=== PATIENT | female | born 1950 | race Caucasian/White ===

== ENCOUNTER 2017-06-15 01:01 | Emergency (ER) | payer OTHER ==
[2017-06-15 01:45] LABS: URINE PH (Dip) POC 5.5 (5.0-8.5)
[2017-06-15 01:45] LABS: URINE BLOOD (Dip) POC Negative (NEGATIVE); URINE KETONES (Dip) POC Negative (NEGATIVE); URINE LEUKOCYTE EST (Dip) POC Negative (NEGATIVE); URINE NITRITE (Dip) POC Negative (NEGATIVE); URINE TOTAL PROTEIN POC Negative (NEGATIVE)
[2017-06-15 02:27] LABS: ADD MAN DIFF? NO
[2017-06-15 02:33] LABS: WHITE BLOOD COUNT 8.7 10^3/ul (4.8-10.8)
[2017-06-15 02:33] LABS: BASOPHIL # 0.1 10^3/ul (0.0-0.1); BASOPHILS % 0.7 % (0.0-2.0); EOSINOPHILS # 0.2 10^3/ul (0.0-0.5); EOSINOPHILS % 2.6 % (0.0-7.0); HEMATOCRIT 42.9 % (37.0-47.0); HEMOGLOBIN 14.5 g/dl (12.0-16.0); LYMPHOCYTES # 3.2 10^3/ul (0.8-2.9); LYMPHOCYTES % 36.8 % (15.0-51.0); MEAN CORPUSCULAR HEMOGLOBIN 28.7 pg (29.0-33.0); MEAN CORPUSCULAR HGB CONC 33.8 g/dl (32.0-37.0); MEAN CORPUSCULAR VOLUME 84.8 fl (82.0-101.0); MEAN PLATELET VOLUME 9.6 fl (7.4-10.4); MONOCYTE # 0.7 10^3/ul (0.3-0.9); MONOCYTES % 7.9 % (0.0-11.0); NEUTROPHIL # 4.5 10^3/ul (1.6-7.5); NEUTROPHILS % 51.8 % (39.0-77.0); PLATELET COUNT 290 10^3/UL (140-415); RED BLOOD COUNT 5.06 10^6/ul (4.20-5.40); RED CELL DISTRIBUTION WIDTH 12.2 % (11.5-14.5)
[2017-06-15 02:52] LABS: ALANINE AMINOTRANSFERASE 55 IU/L (13-69); ALBUMIN 4.2 g/dl (3.3-4.9); ALBUMIN/GLOBULIN RATIO 1.31; ALKALINE PHOSPHATASE 252 IU/L (42-121); ANION GAP 19 (8-16); ASPARTATE AMINO TRANSFERASE 26 IU/L (15-46); BILIRUBIN,INDIRECT 0.2 mg/dl (0-1.1); BILIRUBIN,TOTAL 0.2 mg/dl (0.2-1.3); BLOOD UREA NITROGEN 30 mg/dl (7-20); CALCIUM 10.5 mg/dl (8.4-10.2); CARBON DIOXIDE 26 mmol/L (21-31); CHLORIDE 97 mmol/L (97-110); CREATININE 1.02 mg/dl (0.44-1.00); LIPASE 66 U/L (23-300); POTASSIUM 4.3 mmol/L (3.5-5.1); SODIUM 138 mmol/L (135-144); TOTAL PROTEIN 7.4 g/dl (6.1-8.1)
[2017-06-15 02:57] LABS: GLUCOSE 478 mg/dl (70-220)
[2017-06-15] MEDS: INSULIN LISPRO 100 UNIT/ML VIAL SC (05:09)
[2017-06-15] MEDS: SOD CHLORIDE 0.9% 1,000 ML IV (05:10)
[2017-06-15] MEDS: HYDROCODONE/APAP (10/325) TAB PO (05:24)
== END 2017-06-15 06:26 | disposition home or self-care (01) ==
LOC: E/R 01:01
DX: E11.65 Type 2 diabetes mellitus with hyperglycemia (principal); E86.0 Dehydration; I10 Essential (primary) hypertension; I25.10 Atherosclerotic heart disease of native coronary artery without angina pectoris; Z79.4 Long term (current) use of insulin
CPT/HCPCS: 36415; 71045; 80053; 81003; 82962; 83690; 85025; 93005; 96372; 99285-25

== ENCOUNTER 2017-09-15 05:11 | Observation (INO) | payer OTHER ==
[2017-09-15 05:48] LABS: URINE BLOOD (Dip) POC 1+ (NEGATIVE); URINE KETONES (Dip) POC Negative (NEGATIVE); URINE LEUKOCYTE EST (Dip) POC 1+ (NEGATIVE); URINE NITRITE (Dip) POC Negative (NEGATIVE); URINE TOTAL PROTEIN POC 1+ (NEGATIVE)
[2017-09-15] MEDS: ONDANSETRON 4 MG INJ IV ×2 (06:33→10:34)
[2017-09-15] MEDS: SOD CHLORIDE 0.9% 1,000 ML IV ×3 (06:33→21:48)
[2017-09-15] MEDS: CEFTRIAXONE 1 GM/50 ML (PMX) 50 ML IVPB (06:34)
[2017-09-15] MEDS: HYDROmorphONE 1 MG/ML SYG IV ×2 (06:34→10:34)
[2017-09-15 06:35] LABS: ADD MAN DIFF? NO
[2017-09-15 06:44] LABS: BASOPHILS % 0.4 % (0.0-2.0); EOSINOPHILS # 0.2 10^3/ul (0.0-0.5); EOSINOPHILS % 2.8 % (0.0-7.0); HEMATOCRIT 40.8 % (37.0-47.0); LYMPHOCYTES % 35.9 % (15.0-51.0); MEAN CORPUSCULAR HGB CONC 34.3 g/dl (32.0-37.0); MEAN CORPUSCULAR VOLUME 84.6 fl (82.0-101.0); MEAN PLATELET VOLUME 9.6 fl (7.4-10.4); MONOCYTE # 0.8 10^3/ul (0.3-0.9); MONOCYTES % 9.7 % (0.0-11.0); NEUTROPHIL # 4.3 10^3/ul (1.6-7.5); NEUTROPHILS % 51.1 % (39.0-77.0); PLATELET COUNT 281 10^3/UL (140-415); RED BLOOD COUNT 4.82 10^6/ul (4.20-5.40); RED CELL DISTRIBUTION WIDTH 12.1 % (11.5-14.5)
[2017-09-15 06:44] LABS: WHITE BLOOD COUNT 8.3 10^3/ul (4.8-10.8)
[2017-09-15 07:05] LABS: INR 0.97
[2017-09-15 07:06] LABS: LACTIC ACID 1.6 mmol/L (0.5-2.0)
[2017-09-15 07:06] LABS: PARTIAL THROMBOPLASTIN TIME 29.5 Sec (25.0-35.0)
[2017-09-15 07:11] LABS: ALANINE AMINOTRANSFERASE 24 IU/L (13-69); ALBUMIN 3.7 g/dl (3.3-4.9); ALBUMIN/GLOBULIN RATIO 1.05; ALKALINE PHOSPHATASE 100 IU/L (42-121); AMYLASE 41 U/L (11-123); ANION GAP 12 (8-16); ASPARTATE AMINO TRANSFERASE 17 IU/L (15-46); BLOOD UREA NITROGEN 14 mg/dl (7-20); CALCIUM 9.2 mg/dl (8.4-10.2); CARBON DIOXIDE 27 mmol/L (21-31); CHLORIDE 103 mmol/L (97-110); GLUCOSE 196 mg/dl (70-220); LIPASE 19 U/L (23-300); POTASSIUM 3.3 mmol/L (3.5-5.1); SODIUM 139 mmol/L (135-144); TOTAL PROTEIN 7.2 g/dl (6.1-8.1)
[2017-09-15 07:20] LABS: B-TYPE NATRIURETIC PEPTIDE 372 PG/ML (0-125); TROPONIN-I < 0.012 ng/ml (0.000-0.120)
[2017-09-15 08:09] LABS: ADD UMIC YES; UR ASCORBIC ACID NEGATIVE (NEGATIVE); UR BILIRUBIN (Dip) NEGATIVE (NEGATIVE); UR BLOOD (Dip) 1+ mg/dL (NEGATIVE); UR CLARITY CLEAR (CLEAR); UR COLOR YELLOW (YELLOW); UR GLUCOSE (Dip) 3+ mg/dL (NEGATIVE); UR KETONES (Dip) NEGATIVE (NEGATIVE); UR LEUKOCYTE ESTERASE (Dip) 2+ Leu/ul (NEGATIVE); UR NITRITE (Dip) NEGATIVE (NEGATIVE); UR NONSQUAMOUS EPITHELIAL CELL 1 /HPF (NONE SEEN); UR RBC 3 /HPF (0-5); UR SPECIFIC GRAVITY (Dip) 1.012 (1.003-1.030); UR SQUAMOUS EPITHELIAL CELL FEW /HPF (FEW); UR TOTAL PROTEIN (Dip) NEGATIVE (NEGATIVE); UR UROBILINOGEN (Dip) NEGATIVE (NEGATIVE); UR WBC 15 /HPF (0-5)
[2017-09-15] MEDS ORDERED: HYDROCODONE/APAP (5/325) TAB PO (10:30)
[2017-09-15] MEDS ORDERED: ONDANSETRON 4 MG INJ IV ×2 (11:30→12:00)
[2017-09-15] MEDS ORDERED: ACETAMINOPHEN 325 MG TAB PO (11:30)
[2017-09-15] MEDS ORDERED: BISACODYL 10 MG SUPP PR (12:00)
[2017-09-15] MEDS ORDERED: MAGNESIUM HYDROXIDE 30ML CUP PO (12:00)
[2017-09-15] MEDS ORDERED: DOCUSATE SODIUM 100 MG CAP PO (12:00)
[2017-09-15] MEDS: INSULIN ASPART [NOVOLOG] 3 ML PEN SC ×6 (12:00→20:40)
[2017-09-15] MEDS ORDERED: NACL 0.9% 3 ML SYG IV (12:00)
[2017-09-15] MEDS ORDERED: ZOLPIDEM 5 MG TAB PO (12:30)
[2017-09-15] MEDS ORDERED: GLUCOSE GEL 15 GRAM TUBE PO ×2 (12:30)
[2017-09-15] MEDS ORDERED: GLUCOSE GEL 15 GRAM TUBE BUCCAL (12:30)
[2017-09-15] MEDS ORDERED: GLUCAGON 1 MG INJ IM (12:30)
[2017-09-15] MEDS ORDERED: DEXTROSE 50% 50 ML SYRINGE IV ×2 (12:30)
[2017-09-15 12:36] LABS: MAGNESIUM 1.2 mg/dl (1.7-2.5)
[2017-09-15] MEDS: POTASSIUM CHLORIDE (SR) 20 MEQ TAB PO (12:50)
[2017-09-15] MEDS: MECLIZINE 25 MG TAB PO ×2 (12:50→20:42)
[2017-09-15 13:19] LABS: ERYTHROCYTE SEDIMENTATION RATE 16 mm/Hr (0-30)
[2017-09-15] MEDS: HYDROCODONE/APAP (5/325) TAB PO ×2 (14:39→20:40)
[2017-09-15] MEDS: MAGNESIUM SULFATE 4 GM/100 ML 100 ML IVPB (15:28)
[2017-09-15] MEDS: traMADol 50 MG TAB PO ×3 (17:23→17:43)
[2017-09-15] MEDS: ATORVASTATIN 80 MG TAB PO (20:43)
[2017-09-15] MEDS: INSULIN GLARGINE [LANtus] 3 ML PEN SC (20:47)
[2017-09-15] MEDS: PAROXETINE 20 MG TAB PO (20:49)
[2017-09-15] MEDS: ACETAMINOPHEN 325 MG TAB PO (22:23)
[2017-09-16] MEDS: traMADol 50 MG TAB PO (00:59)
[2017-09-16] MEDS: ACCU-CHEK XX (02:00)
[2017-09-16] MEDS: HYDROCODONE/APAP (5/325) TAB PO ×3 (02:43→14:15)
[2017-09-16 05:24] LABS: ADD MAN DIFF? NO
[2017-09-16 05:31] LABS: BASOPHILS % 0.5 % (0.0-2.0); EOSINOPHILS # 0.2 10^3/ul (0.0-0.5); EOSINOPHILS % 3.5 % (0.0-7.0); HEMATOCRIT 42.3 % (37.0-47.0); HEMOGLOBIN 13.9 g/dl (12.0-16.0); LYMPHOCYTES # 2.5 10^3/ul (0.8-2.9); LYMPHOCYTES % 41.4 % (15.0-51.0); MEAN CORPUSCULAR HEMOGLOBIN 28.8 pg (29.0-33.0); MEAN CORPUSCULAR HGB CONC 32.9 g/dl (32.0-37.0); MEAN CORPUSCULAR VOLUME 87.6 fl (82.0-101.0); MEAN PLATELET VOLUME 9.7 fl (7.4-10.4); MONOCYTE # 0.5 10^3/ul (0.3-0.9); MONOCYTES % 8.8 % (0.0-11.0); NEUTROPHIL # 2.7 10^3/ul (1.6-7.5); NEUTROPHILS % 45.6 % (39.0-77.0); PLATELET COUNT 250 10^3/UL (140-415); RED BLOOD COUNT 4.83 10^6/ul (4.20-5.40); RED CELL DISTRIBUTION WIDTH 12.3 % (11.5-14.5)
[2017-09-16] MEDS: SOD CHLORIDE 0.9% 1,000 ML IV (05:45)
[2017-09-16] MEDS: CEFTRIAXONE 1 GM/50 ML (PMX) 50 ML IVPB (05:45)
[2017-09-16 05:51] LABS: HEMOGLOBIN A1C 11.9 % (0-5.9)
[2017-09-16 05:51] LABS: ALANINE AMINOTRANSFERASE 22 IU/L (13-69); ALBUMIN 3.4 g/dl (3.3-4.9); ALBUMIN/GLOBULIN RATIO 1.13; ALKALINE PHOSPHATASE 86 IU/L (42-121); ANION GAP 15 (8-16); ASPARTATE AMINO TRANSFERASE 24 IU/L (15-46); BILIRUBIN,INDIRECT 0.5 mg/dl (0-1.1); BILIRUBIN,TOTAL 0.5 mg/dl (0.2-1.3); BLOOD UREA NITROGEN 11 mg/dl (7-20); CALCIUM 9.2 mg/dl (8.4-10.2); CARBON DIOXIDE 24 mmol/L (21-31); CHLORIDE 106 mmol/L (97-110); CREATININE 0.64 mg/dl (0.44-1.00); GLUCOSE 190 mg/dl (70-220); MAGNESIUM 1.9 mg/dl (1.7-2.5); PHOSPHORUS 2.7 mg/dl (2.5-4.9); POTASSIUM 4.2 mmol/L (3.5-5.1); SODIUM 141 mmol/L (135-144); TOTAL PROTEIN 6.4 g/dl (6.1-8.1)
[2017-09-16] MEDS: INSULIN ASPART [NOVOLOG] 3 ML PEN SC ×4 (07:50→11:53)
[2017-09-16] MEDS: LISINOPRIL 5 MG TAB PO (08:58)
[2017-09-16] MEDS: CITALOPRAM 20 MG TAB PO (08:58)
[2017-09-16] MEDS: MECLIZINE 25 MG TAB PO ×2 (08:58→14:24)
[2017-09-16] MEDS: ENOXAPARIN 40 MG/0.4 ML SYG SC (09:00)
== END 2017-09-16 16:07 | disposition home health service (06) ==
LOC: E/R 05:11 → PP2 11:17
DX: N39.0 Urinary tract infection, site not specified (principal); G89.4 Chronic pain syndrome; E11.65 Type 2 diabetes mellitus with hyperglycemia; Z79.4 Long term (current) use of insulin; I10 Essential (primary) hypertension; E78.00 Pure hypercholesterolemia, unspecified; I25.10 Atherosclerotic heart disease of native coronary artery without angina pectoris; E78.5 Hyperlipidemia, unspecified; F32.9 Major depressive disorder, single episode, unspecified; F41.9 Anxiety disorder, unspecified; E87.6 Hypokalemia; E83.42 Hypomagnesemia; M06.9 Rheumatoid arthritis, unspecified; Z88.6 Allergy status to analgesic agent; Z88.8 Allergy status to other drugs, medicaments and biological substances
CPT/HCPCS: 71045; 80053; 81001; 81003; 82150; 82962; 83036; 83605; 83690; 83735; 83880; 84100; 84484; 85025; 85610; 85651; 85730; 86850; 86900; 86901; 87040; 87086; 93005; 96374; 96375; 96376; 99285-25; G0378

== ENCOUNTER 2017-09-22 02:28 | Emergency (ER) | payer OTHER ==
[2017-09-22] MEDS: ONDANSETRON (ODT) 4 MG TAB ODT (03:34)
[2017-09-22] MEDS: HYDROCODONE/APAP (10/325) TAB PO (03:34)
[2017-09-22 03:46] LABS: URINE BLOOD (Dip) POC 1+ (NEGATIVE); URINE KETONES (Dip) POC Negative (NEGATIVE); URINE LEUKOCYTE EST (Dip) POC Trace (NEGATIVE); URINE NITRITE (Dip) POC Negative (NEGATIVE); URINE TOTAL PROTEIN POC Negative (NEGATIVE)
[2017-09-22 03:48] LABS: ADD MAN DIFF? NO
[2017-09-22 04:08] LABS: ANION GAP 15 (8-16); BLOOD UREA NITROGEN 22 mg/dl (7-20); CALCIUM 10.3 mg/dl (8.4-10.2); CARBON DIOXIDE 27 mmol/L (21-31); CHLORIDE 100 mmol/L (97-110); CREATININE 0.79 mg/dl (0.44-1.00); GLUCOSE 353 mg/dl (70-220); POTASSIUM 4.3 mmol/L (3.5-5.1); SODIUM 138 mmol/L (135-144)
[2017-09-22 04:12] LABS: WHITE BLOOD COUNT 7.8 10^3/ul (4.8-10.8)
[2017-09-22 04:12] LABS: BASOPHIL # 0.1 10^3/ul (0.0-0.1); BASOPHILS % 0.6 % (0.0-2.0); EOSINOPHILS # 0.2 10^3/ul (0.0-0.5); HEMATOCRIT 43.3 % (37.0-47.0); HEMOGLOBIN 14.7 g/dl (12.0-16.0); LYMPHOCYTES # 3.1 10^3/ul (0.8-2.9); LYMPHOCYTES % 39.5 % (15.0-51.0); MEAN CORPUSCULAR HEMOGLOBIN 29.1 pg (29.0-33.0); MEAN CORPUSCULAR HGB CONC 33.9 g/dl (32.0-37.0); MEAN CORPUSCULAR VOLUME 85.7 fl (82.0-101.0); MEAN PLATELET VOLUME 9.5 fl (7.4-10.4); MONOCYTE # 0.7 10^3/ul (0.3-0.9); MONOCYTES % 8.7 % (0.0-11.0); NEUTROPHIL # 3.8 10^3/ul (1.6-7.5); NEUTROPHILS % 48.9 % (39.0-77.0); PLATELET COUNT 308 10^3/UL (140-415); RED BLOOD COUNT 5.05 10^6/ul (4.20-5.40); RED CELL DISTRIBUTION WIDTH 12.1 % (11.5-14.5)
[2017-09-22] MEDS: INSULIN LISPRO 100 UNIT/ML VIAL SC (04:57)
== END 2017-09-22 05:17 | disposition home or self-care (01) ==
LOC: E/R 05:17
DX: G89.29 Other chronic pain (principal); E11.65 Type 2 diabetes mellitus with hyperglycemia; I10 Essential (primary) hypertension; I25.10 Atherosclerotic heart disease of native coronary artery without angina pectoris; Z79.4 Long term (current) use of insulin
CPT/HCPCS: 71045; 80048; 81003; 85025; 96372; 99284-25

== ENCOUNTER 2017-10-06 23:49 | Observation (INO) | payer OTHER ==
[2017-10-07 00:48] LABS: ADD MAN DIFF? NO
[2017-10-07 00:50] LABS: BASOPHILS % 0.4 % (0.0-2.0); EOSINOPHILS # 0.2 10^3/ul (0.0-0.5); EOSINOPHILS % 2.5 % (0.0-7.0); HEMATOCRIT 43.2 % (37.0-47.0); HEMOGLOBIN 14.5 g/dl (12.0-16.0); LYMPHOCYTES # 3.5 10^3/ul (0.8-2.9); LYMPHOCYTES % 46.3 % (15.0-51.0); MEAN CORPUSCULAR HGB CONC 33.6 g/dl (32.0-37.0); MEAN CORPUSCULAR VOLUME 86.4 fl (82.0-101.0); MEAN PLATELET VOLUME 9.4 fl (7.4-10.4); MONOCYTE # 0.7 10^3/ul (0.3-0.9); MONOCYTES % 8.7 % (0.0-11.0); NEUTROPHIL # 3.2 10^3/ul (1.6-7.5); NEUTROPHILS % 42.1 % (39.0-77.0); PLATELET COUNT 223 10^3/UL (140-415); RED CELL DISTRIBUTION WIDTH 11.9 % (11.5-14.5)
[2017-10-07 00:50] LABS: WHITE BLOOD COUNT 7.6 10^3/ul (4.8-10.8)
[2017-10-07] MEDS: SOD CHLORIDE 0.9% 500 ML IV (01:02)
[2017-10-07 01:08] LABS: ANION GAP 13 (8-16); BLOOD UREA NITROGEN 22 mg/dl (7-20); CALCIUM 9.8 mg/dl (8.4-10.2); CARBON DIOXIDE 29 mmol/L (21-31); CHLORIDE 98 mmol/L (97-110); CREATININE 0.71 mg/dl (0.44-1.00); GLUCOSE 261 mg/dl (70-220); LIPASE 46 U/L (23-300); POTASSIUM 3.8 mmol/L (3.5-5.1); SODIUM 136 mmol/L (135-144)
[2017-10-07 01:15] LABS: URINE BLOOD (Dip) POC 2+ (NEGATIVE); URINE KETONES (Dip) POC Negative (NEGATIVE); URINE LEUKOCYTE EST (Dip) POC Negative (NEGATIVE); URINE NITRITE (Dip) POC Negative (NEGATIVE); URINE TOTAL PROTEIN POC Negative (NEGATIVE)
[2017-10-07 01:28] LABS: ADD UMIC YES; UR ASCORBIC ACID NEGATIVE (NEGATIVE); UR BILIRUBIN (Dip) NEGATIVE (NEGATIVE); UR BLOOD (Dip) 2+ mg/dL (NEGATIVE); UR CLARITY CLEAR (CLEAR); UR COLOR YELLOW (YELLOW); UR GLUCOSE (Dip) 3+ mg/dL (NEGATIVE); UR KETONES (Dip) NEGATIVE (NEGATIVE); UR LEUKOCYTE ESTERASE (Dip) NEGATIVE Leu/ul (NEGATIVE); UR NITRITE (Dip) NEGATIVE (NEGATIVE); UR RBC 0 /HPF (0-5); UR SPECIFIC GRAVITY (Dip) 1.018 (1.003-1.030); UR TOTAL PROTEIN (Dip) NEGATIVE (NEGATIVE); UR UROBILINOGEN (Dip) NEGATIVE (NEGATIVE); UR WBC 1 /HPF (0-5)
[2017-10-07] MEDS ORDERED: ACETAMINOPHEN 325 MG TAB PO (03:00)
[2017-10-07] MEDS ORDERED: ONDANSETRON 4 MG INJ IV ×2 (03:00→05:30)
[2017-10-07] MEDS ORDERED: DOCUSATE SODIUM 100 MG CAP PO (05:30)
[2017-10-07] MEDS ORDERED: NACL 0.9% 3 ML SYG IV (05:30)
[2017-10-07] MEDS: ACETAMINOPHEN 325 MG TAB PO ×2 (05:52→13:03)
[2017-10-07] MEDS ORDERED: GLUCOSE GEL 15 GRAM TUBE BUCCAL (06:00)
[2017-10-07] MEDS ORDERED: GLUCAGON 1 MG INJ IM (06:00)
[2017-10-07] MEDS ORDERED: GLUCOSE GEL 15 GRAM TUBE PO ×2 (06:00)
[2017-10-07] MEDS ORDERED: DEXTROSE 50% 50 ML SYRINGE IV ×2 (06:00)
[2017-10-07] MEDS: HEPARIN 5,000 UNIT/0.5 ML VIAL SC ×3 (06:05→22:01)
[2017-10-07] MEDS: INSULIN ASPART [NOVOLOG] 3 ML PEN SC ×4 (07:57→20:46)
[2017-10-07] MEDS: LISINOPRIL 5 MG TAB PO (08:18)
[2017-10-07] MEDS: ASPIRIN 81 MG TAB PO (08:18)
[2017-10-07 13:48] LABS: AMMONIA 13 umol/l (9-30)
[2017-10-07 14:59] LABS: FOLATE 17.1 ng/ml (2.8-20.0)
[2017-10-07] MEDS: IBUPROFEN 600 MG TAB PO (16:08)
[2017-10-07] MEDS ORDERED: IBUPROFEN 600 MG TAB PO (18:00)
[2017-10-07] MEDS: ATORVASTATIN 80 MG TAB PO (20:41)
[2017-10-07] MEDS: INSULIN GLARGINE [LANTus] (100 UNITS/ML) SYG SC (20:47)
[2017-10-07] MEDS: traZODone 50 MG TAB PO (21:54)
[2017-10-07] MEDS: KETOROLAC 15 MG INJ IV (21:54)
[2017-10-08] MEDS: ACETAMINOPHEN 325 MG TAB PO ×2 (00:38→09:15)
[2017-10-08] MEDS: ACCU-CHEK XX (02:12)
[2017-10-08] MEDS: KETOROLAC 15 MG INJ IV ×2 (04:47→11:21)
[2017-10-08] MEDS: HEPARIN 5,000 UNIT/0.5 ML VIAL SC ×2 (05:41→13:12)
[2017-10-08] MEDS: INSULIN ASPART [NOVOLOG] 3 ML PEN SC ×3 (08:43→17:19)
[2017-10-08] MEDS: LISINOPRIL 5 MG TAB PO (09:11)
[2017-10-08] MEDS: ASPIRIN 81 MG TAB PO (09:11)
[2017-10-08] MEDS: HYDROCODONE/APAP (5/325) TAB PO ×2 (11:39→15:34)
[2017-10-08] MEDS ORDERED: INSULIN GLARGINE [LANTus] (100 UNITS/ML) SYG SC (20:00)
[2017-10-09] MEDS ORDERED: LISINOPRIL 10 MG TAB PO (09:00)
[2017-10-10] MEDS ORDERED: IBUPROFEN 600 MG TAB PO (22:00)
== END 2017-10-08 20:39 | disposition home health service (06) ==
LOC: E/R 23:49 → TEL 10-07 02:58
DX: G93.40 Encephalopathy, unspecified (principal); I10 Essential (primary) hypertension; E11.40 Type 2 diabetes mellitus with diabetic neuropathy, unspecified; E78.5 Hyperlipidemia, unspecified; G89.29 Other chronic pain; M06.9 Rheumatoid arthritis, unspecified; Z79.4 Long term (current) use of insulin; F11.20 Opioid dependence, uncomplicated; Z88.6 Allergy status to analgesic agent
CPT/HCPCS: 36415; 70450; 70551; 71045; 80048; 81001; 81003; 82140; 82607; 82746; 82962; 83036; 83690; 84443; 85025; 87040; 87086; 99285-25; G0378

== ENCOUNTER 2018-01-10 23:37 | Emergency (ER) | payer OTHER ==
[2018-01-11] MEDS: ACETAMINOPHEN 500 MG TAB PO (00:54)
[2018-01-11 00:59] LABS: URINE PH (Dip) POC 6.5 (5.0-8.5)
[2018-01-11 00:59] LABS: URINE BLOOD (Dip) POC Trace-lysed (NEGATIVE); URINE KETONES (Dip) POC Negative (NEGATIVE); URINE LEUKOCYTE EST (Dip) POC Negative (NEGATIVE); URINE NITRITE (Dip) POC Negative (NEGATIVE); URINE TOTAL PROTEIN POC Trace (NEGATIVE)
== END 2018-01-11 02:00 | disposition home or self-care (01) ==
LOC: FTE 23:37
DX: R51 Headache (principal); R19.7 Diarrhea, unspecified; I10 Essential (primary) hypertension; E11.9 Type 2 diabetes mellitus without complications; Z79.4 Long term (current) use of insulin
CPT/HCPCS: 81003; 99282

== ENCOUNTER 2018-03-31 07:52 | Inpatient (IN) | payer MEDICARE, OTHER ==
[2018-03-31] MEDS ORDERED: ONDANSETRON 4 MG INJ (10:09)
[2018-03-31] MEDS: HYDROmorphONE 1 MG/ML SYG IV (10:10)
[2018-03-31 11:03] LABS: ADD MAN DIFF? NO
[2018-03-31 11:05] LABS: ABNORMAL IP MESSAGE 1; BASOPHIL # 0.1 10^3/ul (0.0-0.1); BASOPHILS % 0.4 % (0.0-2.0); EOSINOPHILS # 0.1 10^3/ul (0.0-0.5); EOSINOPHILS % 1.1 % (0.0-7.0); HEMATOCRIT 44.9 % (37.0-47.0); HEMOGLOBIN 15.6 g/dl (12.0-16.0); LYMPHOCYTES # 2.5 10^3/ul (0.8-2.9); LYMPHOCYTES % 20.2 % (15.0-51.0); MEAN CORPUSCULAR HEMOGLOBIN 29.1 pg (29.0-33.0); MEAN CORPUSCULAR HGB CONC 34.7 g/dl (32.0-37.0); MEAN CORPUSCULAR VOLUME 83.6 fl (82.0-101.0); MEAN PLATELET VOLUME 9.8 fl (7.4-10.4); MONOCYTE # 1.6 10^3/ul (0.3-0.9); MONOCYTES % 13.1 % (0.0-11.0); PLATELET COUNT 277 10^3/UL (140-415); RED BLOOD COUNT 5.37 10^6/ul (4.20-5.40); RED CELL DISTRIBUTION WIDTH 11.9 % (11.5-14.5)
[2018-03-31 11:05] LABS: WHITE BLOOD COUNT 12.2 10^3/ul (4.8-10.8)
[2018-03-31 11:10] LABS: POSITIVE DIFF @See below
[2018-03-31 11:24] LABS: ALANINE AMINOTRANSFERASE 22 IU/L (13-69); ALBUMIN 4.2 g/dl (3.3-4.9); ALBUMIN/GLOBULIN RATIO 1.13; ALKALINE PHOSPHATASE 124 IU/L (42-121); ANION GAP 13 (5-13); ASPARTATE AMINO TRANSFERASE 18 IU/L (15-46); BILIRUBIN,INDIRECT 0.8 mg/dl (0-1.1); BILIRUBIN,TOTAL 0.8 mg/dl (0.2-1.3); BLOOD UREA NITROGEN 43 mg/dl (7-20); CALCIUM 10.7 mg/dl (8.4-10.2); CARBON DIOXIDE 20 mmol/L (21-31); CHLORIDE 102 mmol/L (97-110); CREATININE 0.87 mg/dl (0.44-1.00); Estimated GFR > 60 mL/min (>60); GLUCOSE 390 mg/dl (70-220); LIPASE 26 U/L (23-300); POTASSIUM 4.5 mmol/L (3.5-5.1); SODIUM 135 mmol/L (135-144); TOTAL PROTEIN 7.9 g/dl (6.1-8.1)
[2018-03-31] MEDS: ONDANSETRON 4 MG INJ IV ×2 (11:27→22:41)
[2018-03-31] MEDS: SOD CHLORIDE 0.9% 500 ML IV (11:27)
[2018-03-31 11:35] LABS: TROPONIN-I < 0.012 ng/ml (0.000-0.120)
[2018-03-31] MEDS: SOD CHLORIDE 0.9% 100 ML (12:10)
[2018-03-31] MEDS: IOHEXOL 300MG/ML 150 ML BTL (12:10)
[2018-03-31] MEDS: metroNIDAZOLE 500 MG/NS (PMX) 100 ML IVPB ×3 (12:31→21:39)
[2018-03-31] MEDS: HYDROmorphONE 2 MG/ML SYG IV (12:31)
[2018-03-31 12:37] LABS: ADD UMIC YES; UR ASCORBIC ACID NEGATIVE (NEGATIVE); UR BACTERIA FEW /HPF (NONE SEEN); UR BILIRUBIN (Dip) NEGATIVE (NEGATIVE); UR BLOOD (Dip) NEGATIVE (NEGATIVE); UR CLARITY SLIGHTLY CLOUDY (CLEAR); UR COLOR YELLOW (YELLOW); UR GLUCOSE (Dip) 3+ mg/dL (NEGATIVE); UR KETONES (Dip) TRACE mg/dL (NEGATIVE); UR LEUKOCYTE ESTERASE (Dip) TRACE Leu/ul (NEGATIVE); UR NITRITE (Dip) NEGATIVE (NEGATIVE); UR RBC 4 /HPF (0-5); UR SPECIFIC GRAVITY (Dip) 1.021 (1.003-1.030); UR SQUAMOUS EPITHELIAL CELL FEW /HPF (FEW); UR TOTAL PROTEIN (Dip) NEGATIVE (NEGATIVE); UR UROBILINOGEN (Dip) NEGATIVE (NEGATIVE); UR WBC 5 /HPF (0-5)
[2018-03-31] MEDS: LEVOFLOXACIN 750MG/D5W (PMX) 150 ML IVPB (12:52)
[2018-03-31] MEDS ORDERED: NACL 0.9% 3 ML SYG IV (13:30)
[2018-03-31] MEDS ORDERED: NA PHOSPHATE/BIPHOS 133 ML ENEMA PR (13:30)
[2018-03-31] MEDS ORDERED: BISACODYL (EC) 5 MG TAB PO (13:30)
[2018-03-31] MEDS ORDERED: MAGNESIUM HYDROXIDE 30ML CUP PO (13:30)
[2018-03-31] MEDS ORDERED: DOCUSATE SODIUM 100 MG CAP PO (13:30)
[2018-03-31] MEDS ORDERED: BISACODYL 10 MG SUPP PR ×2 (13:30→14:00)
[2018-03-31] MEDS: HYDROmorphONE 0.5 MG/0.5 ML SYG IV ×2 (14:14→20:19)
[2018-03-31] MEDS: SOD CHLORIDE 0.9% 1,000 ML IV ×2 (14:15→22:13)
[2018-03-31] MEDS: FAMOTIDINE 20 MG INJ IV ×2 (14:15→20:19)
[2018-03-31] MEDS: BISACODYL (EC) 5 MG TAB PO (14:16)
[2018-03-31] MEDS: OXYCODONE/ACETAMINOPHEN (5/325) TAB PO (17:22)
[2018-03-31] MEDS ORDERED: CIPROFLOXACIN 500 MG TAB PO (18:00)
[2018-03-31] MEDS ORDERED: DEXTROSE 50% 50 ML SYRINGE IV ×2 (21:00)
[2018-03-31] MEDS ORDERED: GLUCAGON 1 MG INJ IM (21:00)
[2018-03-31] MEDS ORDERED: GLUCOSE GEL 15 GRAM TUBE BUCCAL (21:00)
[2018-03-31] MEDS ORDERED: GLUCOSE GEL 15 GRAM TUBE PO ×2 (21:00)
[2018-03-31] MEDS: INSULIN ASPART [NOVOLOG] 3 ML PEN SC (22:05)
[2018-04-01] MEDS: HYDROmorphONE 0.5 MG/0.5 ML SYG IV ×6 (00:26→20:41)
[2018-04-01] MEDS: ACCU-CHEK XX (02:00)
[2018-04-01] MEDS: SOD CHLORIDE 0.9% 1,000 ML IV ×3 (04:37→20:53)
[2018-04-01] MEDS: metroNIDAZOLE 500 MG/NS (PMX) 100 ML IVPB ×3 (05:39→23:03)
[2018-04-01 07:15] LABS: ADD MAN DIFF? NO
[2018-04-01 07:20] LABS: BASOPHILS % 0.3 % (0.0-2.0); EOSINOPHILS # 0.1 10^3/ul (0.0-0.5); HEMOGLOBIN 13.3 g/dl (12.0-16.0); LYMPHOCYTES # 2.5 10^3/ul (0.8-2.9); LYMPHOCYTES % 24.7 % (15.0-51.0); MEAN CORPUSCULAR HEMOGLOBIN 29.4 pg (29.0-33.0); MEAN CORPUSCULAR HGB CONC 34.1 g/dl (32.0-37.0); MEAN CORPUSCULAR VOLUME 86.1 fl (82.0-101.0); MEAN PLATELET VOLUME 9.7 fl (7.4-10.4); MONOCYTE # 1.3 10^3/ul (0.3-0.9); MONOCYTES % 12.5 % (0.0-11.0); NEUTROPHIL # 6.1 10^3/ul (1.6-7.5); NEUTROPHILS % 61.2 % (39.0-77.0); PLATELET COUNT 215 10^3/UL (140-415); RED BLOOD COUNT 4.53 10^6/ul (4.20-5.40); RED CELL DISTRIBUTION WIDTH 12.1 % (11.5-14.5)
[2018-04-01 07:32] LABS: HEMOGLOBIN A1C 11.8 % (0-5.9)
[2018-04-01 07:42] LABS: ALANINE AMINOTRANSFERASE 23 IU/L (13-69); ALBUMIN 3.2 g/dl (3.3-4.9); ALKALINE PHOSPHATASE 67 IU/L (42-121); ANION GAP 9 (5-13); ASPARTATE AMINO TRANSFERASE 17 IU/L (15-46); BILIRUBIN,INDIRECT 0.5 mg/dl (0-1.1); BILIRUBIN,TOTAL 0.5 mg/dl (0.2-1.3); BLOOD UREA NITROGEN 25 mg/dl (7-20); CALCIUM 9.2 mg/dl (8.4-10.2); CARBON DIOXIDE 25 mmol/L (21-31); CHLORIDE 105 mmol/L (97-110); CHOL/HDL RATIO 3.4 RATIO; CHOLESTEROL 146 mg/dl (100-200); CREATININE 0.74 mg/dl (0.44-1.00); Estimated GFR > 60 mL/min (>60); GLUCOSE 227 mg/dl (70-220); HDL CHOLESTEROL 42 mg/dl (35-98); LDL CHOLESTEROL,CALCULATED 60 mg/dl; POTASSIUM 4.4 mmol/L (3.5-5.1); SODIUM 139 mmol/L (135-144); TOTAL PROTEIN 6.4 g/dl (6.1-8.1); TRIGLYCERIDES 218 mg/dl (0-149)
[2018-04-01] MEDS: INSULIN ASPART [NOVOLOG] 3 ML PEN SC ×4 (08:07→20:50)
[2018-04-01] MEDS: FAMOTIDINE 20 MG INJ IV ×2 (08:14→20:53)
[2018-04-01] MEDS: ONDANSETRON 4 MG INJ IV (08:14)
[2018-04-01] MEDS: ENOXAPARIN 30 MG/0.3 ML SYG SC (08:15)
[2018-04-01] MEDS: CIPROFLOXACIN 400MG/D5W 200 ML IVPB ×2 (09:29→21:54)
[2018-04-01] MEDS: KETOROLAC 30 MG INJ IV (11:07)
[2018-04-01 15:27] LABS: CARCINOEMBRYONIC ANTIGEN 2.5 ng/ml (0.0-5.0)
[2018-04-01] MEDS: INSULIN GLARGINE [LANTus] (100 UNITS/ML) SYG SC (20:49)
[2018-04-01] MEDS: ATORVASTATIN 80 MG TAB PO (20:53)
[2018-04-01] MEDS: PAROXETINE 20 MG TAB PO (20:53)
[2018-04-02] MEDS: HYDROmorphONE 0.5 MG/0.5 ML SYG IV ×6 (00:44→21:42)
[2018-04-02] MEDS: ACCU-CHEK XX (02:00)
[2018-04-02] MEDS: metroNIDAZOLE 500 MG/NS (PMX) 100 ML IVPB ×3 (05:40→22:05)
[2018-04-02 06:02] LABS: ADD MAN DIFF? NO
[2018-04-02 06:11] LABS: BASOPHILS % 0.3 % (0.0-2.0); EOSINOPHILS # 0.2 10^3/ul (0.0-0.5); EOSINOPHILS % 1.5 % (0.0-7.0); HEMATOCRIT 38.1 % (37.0-47.0); LYMPHOCYTES % 27.4 % (15.0-51.0); MEAN CORPUSCULAR HEMOGLOBIN 29.5 pg (29.0-33.0); MEAN CORPUSCULAR HGB CONC 34.1 g/dl (32.0-37.0); MEAN CORPUSCULAR VOLUME 86.4 fl (82.0-101.0); MEAN PLATELET VOLUME 9.8 fl (7.4-10.4); MONOCYTE # 1.1 10^3/ul (0.3-0.9); MONOCYTES % 9.5 % (0.0-11.0); NEUTROPHIL # 6.8 10^3/ul (1.6-7.5); NEUTROPHILS % 60.9 % (39.0-77.0); PLATELET COUNT 226 10^3/UL (140-415); RED BLOOD COUNT 4.41 10^6/ul (4.20-5.40)
[2018-04-02 06:11] LABS: WHITE BLOOD COUNT 11.1 10^3/ul (4.8-10.8)
[2018-04-02 06:22] LABS: MAGNESIUM 1.2 mg/dl (1.7-2.5)
[2018-04-02 06:37] LABS: ALANINE AMINOTRANSFERASE 24 IU/L (13-69); ALBUMIN 3.1 g/dl (3.3-4.9); ALBUMIN/GLOBULIN RATIO 1.06; ALKALINE PHOSPHATASE 78 IU/L (42-121); ANION GAP 4 (5-13); ASPARTATE AMINO TRANSFERASE 23 IU/L (15-46); BILIRUBIN,INDIRECT 0.4 mg/dl (0-1.1); BILIRUBIN,TOTAL 0.4 mg/dl (0.2-1.3); BLOOD UREA NITROGEN 19 mg/dl (7-20); CALCIUM 9.1 mg/dl (8.4-10.2); CARBON DIOXIDE 25 mmol/L (21-31); CHLORIDE 108 mmol/L (97-110); CREATININE 0.78 mg/dl (0.44-1.00); Estimated GFR > 60 mL/min (>60); GLUCOSE 214 mg/dl (70-220); POTASSIUM 4.1 mmol/L (3.5-5.1); SODIUM 137 mmol/L (135-144)
[2018-04-02] MEDS: INSULIN ASPART [NOVOLOG] 3 ML PEN SC ×5 (08:04→21:01)
[2018-04-02] MEDS: FAMOTIDINE 20 MG INJ IV (08:38)
[2018-04-02] MEDS: CITALOPRAM 20 MG TAB PO (08:38)
[2018-04-02] MEDS: LISINOPRIL 5 MG TAB PO (08:39)
[2018-04-02] MEDS: CIPROFLOXACIN 400MG/D5W 200 ML IVPB ×2 (08:39→20:57)
[2018-04-02] MEDS: ENOXAPARIN 30 MG/0.3 ML SYG SC (08:42)
[2018-04-02] MEDS: SOD CHLORIDE 0.9% 1,000 ML IV (11:10)
[2018-04-02] MEDS: MAGNESIUM SULFATE 3 GM in DEXTROSE 5% 100 ML IVPB (11:10)
[2018-04-02 11:34] LABS: OCCULT BLOOD STOOL NEGATIVE (NEGATIVE)
[2018-04-02] MEDS: HYDROCODONE/APAP (5/325) TAB PO ×2 (12:05→20:26)
[2018-04-02] MEDS: PANTOPRAZOLE 40 MG INJ IV (17:32)
[2018-04-02] MEDS: LIDOCAINE/MYLANTA 40 ML BTL PO (17:32)
[2018-04-02] MEDS: SUCRALFATE (100 MG/ML) 10ML CUP PO ×2 (17:32→20:26)
[2018-04-02] MEDS: INSULIN GLARGINE [LANTus] (100 UNITS/ML) SYG SC (20:13)
[2018-04-02] MEDS: PAROXETINE 20 MG TAB PO (20:27)
[2018-04-02] MEDS: ATORVASTATIN 80 MG TAB PO (20:27)
[2018-04-03] MEDS: SOD CHLORIDE 0.9% 1,000 ML IV ×3 (01:26→20:22)
[2018-04-03] MEDS: HYDROmorphONE 0.5 MG/0.5 ML SYG IV ×6 (01:45→22:08)
[2018-04-03] MEDS: ACCU-CHEK XX (02:00)
[2018-04-03] MEDS: ACETAMINOPHEN 325 MG TAB PO (03:34)
[2018-04-03] MEDS: PANTOPRAZOLE 40 MG INJ IV ×2 (05:30→17:41)
[2018-04-03] MEDS: metroNIDAZOLE 500 MG/NS (PMX) 100 ML IVPB ×3 (05:30→22:08)
[2018-04-03 07:18] LABS: ADD MAN DIFF? NO
[2018-04-03 07:20] LABS: WHITE BLOOD COUNT 7.6 10^3/ul (4.8-10.8)
[2018-04-03 07:20] LABS: BASOPHILS % 0.3 % (0.0-2.0); EOSINOPHILS # 0.3 10^3/ul (0.0-0.5); EOSINOPHILS % 3.4 % (0.0-7.0); HEMATOCRIT 35.8 % (37.0-47.0); LYMPHOCYTES # 2.6 10^3/ul (0.8-2.9); LYMPHOCYTES % 33.9 % (15.0-51.0); MEAN CORPUSCULAR HGB CONC 33.5 g/dl (32.0-37.0); MEAN CORPUSCULAR VOLUME 86.5 fl (82.0-101.0); MEAN PLATELET VOLUME 9.3 fl (7.4-10.4); MONOCYTE # 0.7 10^3/ul (0.3-0.9); MONOCYTES % 9.6 % (0.0-11.0); NEUTROPHILS % 52.5 % (39.0-77.0); PLATELET COUNT 218 10^3/UL (140-415); RED BLOOD COUNT 4.14 10^6/ul (4.20-5.40); RED CELL DISTRIBUTION WIDTH 11.9 % (11.5-14.5)
[2018-04-03 07:36] LABS: PHOSPHORUS 3.2 mg/dl (2.5-4.9)
[2018-04-03 07:36] LABS: MAGNESIUM 1.4 mg/dl (1.7-2.5)
[2018-04-03 07:39] LABS: ALANINE AMINOTRANSFERASE 21 IU/L (13-69); ALBUMIN 2.9 g/dl (3.3-4.9); ALBUMIN/GLOBULIN RATIO 1.07; ALKALINE PHOSPHATASE 74 IU/L (42-121); ANION GAP 4 (5-13); ASPARTATE AMINO TRANSFERASE 18 IU/L (15-46); BILIRUBIN,INDIRECT 0.3 mg/dl (0-1.1); BILIRUBIN,TOTAL 0.3 mg/dl (0.2-1.3); BLOOD UREA NITROGEN 13 mg/dl (7-20); CALCIUM 9.1 mg/dl (8.4-10.2); CARBON DIOXIDE 23 mmol/L (21-31); CHLORIDE 109 mmol/L (97-110); CREATININE 0.73 mg/dl (0.44-1.00); Estimated GFR > 60 mL/min (>60); GLUCOSE 201 mg/dl (70-220); POTASSIUM 4.3 mmol/L (3.5-5.1); SODIUM 136 mmol/L (135-144); TOTAL PROTEIN 5.6 g/dl (6.1-8.1)
[2018-04-03] MEDS: INSULIN ASPART [NOVOLOG] 3 ML PEN SC ×7 (08:07→20:20)
[2018-04-03] MEDS: SUCRALFATE (100 MG/ML) 10ML CUP PO ×4 (08:09→20:31)
[2018-04-03] MEDS: ENOXAPARIN 30 MG/0.3 ML SYG SC (08:09)
[2018-04-03] MEDS: LISINOPRIL 5 MG TAB PO (08:10)
[2018-04-03] MEDS: CITALOPRAM 20 MG TAB PO (08:11)
[2018-04-03] MEDS: CIPROFLOXACIN 400MG/D5W 200 ML IVPB ×2 (09:35→20:22)
[2018-04-03] MEDS: BARIUM SULF 2% 450 ML BTL (BERRY SMOOTHIE) PO (15:21)
[2018-04-03] MEDS: MAGNESIUM SULFATE 3 GM in DEXTROSE 5% 100 ML IVPB (15:52)
[2018-04-03] MEDS: IOHEXOL 300MG/ML 150 ML BTL (18:48)
[2018-04-03] MEDS: SOD CHLORIDE 0.9% 100 ML (18:48)
[2018-04-03] MEDS: PAROXETINE 20 MG TAB PO (20:20)
[2018-04-03] MEDS: ATORVASTATIN 80 MG TAB PO (20:20)
[2018-04-03] MEDS: INSULIN GLARGINE [LANTus] (100 UNITS/ML) SYG SC (20:21)
[2018-04-04] MEDS: ACCU-CHEK XX (01:33)
[2018-04-04] MEDS: HYDROmorphONE 0.5 MG/0.5 ML SYG IV ×5 (02:12→19:51)
[2018-04-04] MEDS: PANTOPRAZOLE 40 MG INJ IV (05:40)
[2018-04-04] MEDS: metroNIDAZOLE 500 MG/NS (PMX) 100 ML IVPB (05:40)
[2018-04-04 05:56] LABS: ADD MAN DIFF? NO
[2018-04-04 05:58] LABS: WHITE BLOOD COUNT 8.4 10^3/ul (4.8-10.8)
[2018-04-04 05:58] LABS: BASOPHILS % 0.4 % (0.0-2.0); EOSINOPHILS # 0.3 10^3/ul (0.0-0.5); EOSINOPHILS % 3.6 % (0.0-7.0); HEMATOCRIT 36.6 % (37.0-47.0); HEMOGLOBIN 12.4 g/dl (12.0-16.0); LYMPHOCYTES # 2.5 10^3/ul (0.8-2.9); LYMPHOCYTES % 29.8 % (15.0-51.0); MEAN CORPUSCULAR HEMOGLOBIN 29.4 pg (29.0-33.0); MEAN CORPUSCULAR HGB CONC 33.9 g/dl (32.0-37.0); MEAN CORPUSCULAR VOLUME 86.7 fl (82.0-101.0); MEAN PLATELET VOLUME 9.1 fl (7.4-10.4); MONOCYTE # 0.8 10^3/ul (0.3-0.9); MONOCYTES % 9.7 % (0.0-11.0); NEUTROPHIL # 4.7 10^3/ul (1.6-7.5); NEUTROPHILS % 56.1 % (39.0-77.0); PLATELET COUNT 245 10^3/UL (140-415); RED BLOOD COUNT 4.22 10^6/ul (4.20-5.40); RED CELL DISTRIBUTION WIDTH 11.9 % (11.5-14.5)
[2018-04-04 06:21] LABS: AMYLASE 44 U/L (11-123)
[2018-04-04 06:21] LABS: LIPASE 25 U/L (23-300)
[2018-04-04 06:22] LABS: MAGNESIUM 1.6 mg/dl (1.7-2.5)
[2018-04-04 06:22] LABS: PHOSPHORUS 3.2 mg/dl (2.5-4.9)
[2018-04-04 06:25] LABS: ALANINE AMINOTRANSFERASE 32 IU/L (13-69); ALBUMIN/GLOBULIN RATIO 1.11; ALKALINE PHOSPHATASE 73 IU/L (42-121); ANION GAP 7 (5-13); ASPARTATE AMINO TRANSFERASE 58 IU/L (15-46); BILIRUBIN,INDIRECT 0.2 mg/dl (0-1.1); BILIRUBIN,TOTAL 0.2 mg/dl (0.2-1.3); BLOOD UREA NITROGEN 10 mg/dl (7-20); CALCIUM 9.6 mg/dl (8.4-10.2); CARBON DIOXIDE 25 mmol/L (21-31); CHLORIDE 108 mmol/L (97-110); CREATININE 0.65 mg/dl (0.44-1.00); Estimated GFR > 60 mL/min (>60); GLUCOSE 166 mg/dl (70-220); POTASSIUM 3.9 mmol/L (3.5-5.1); SODIUM 140 mmol/L (135-144); TOTAL PROTEIN 5.7 g/dl (6.1-8.1)
[2018-04-04] MEDS: SOD CHLORIDE 0.9% 1,000 ML IV ×2 (07:19→21:16)
[2018-04-04] MEDS: INSULIN ASPART [NOVOLOG] 3 ML PEN SC ×7 (08:08→21:10)
[2018-04-04] MEDS: SUCRALFATE (100 MG/ML) 10ML CUP PO ×5 (09:00→21:10)
[2018-04-04] MEDS: CIPROFLOXACIN 400MG/D5W 200 ML IVPB (09:25)
[2018-04-04] MEDS: LISINOPRIL 5 MG TAB PO (09:25)
[2018-04-04] MEDS: ENOXAPARIN 30 MG/0.3 ML SYG SC (09:26)
[2018-04-04] MEDS: CITALOPRAM 20 MG TAB PO (09:26)
[2018-04-04] MEDS: MAGNESIUM SULFATE 2 GM/50 ML 50 ML IVPB (12:37)
[2018-04-04] MEDS: metroNIDAZOLE 500 MG TAB PO ×2 (16:06→21:11)
[2018-04-04] MEDS: PANTOPRAZOLE (EC) 40 MG TAB PO (17:21)
[2018-04-04] MEDS: CIPROFLOXACIN 500 MG TAB PO (17:21)
[2018-04-04] MEDS: INSULIN GLARGINE [LANTus] (100 UNITS/ML) SYG SC (21:09)
[2018-04-04] MEDS: ATORVASTATIN 80 MG TAB PO (21:10)
[2018-04-04] MEDS: PAROXETINE 20 MG TAB PO (21:11)
[2018-04-04] MEDS: ZOLPIDEM 5 MG TAB PO (23:14)
[2018-04-05] MEDS: HYDROmorphONE 0.5 MG/0.5 ML SYG IV ×6 (00:14→22:09)
[2018-04-05] MEDS: ACCU-CHEK XX (02:00)
[2018-04-05] MEDS: SOD CHLORIDE 0.9% 1,000 ML IV ×2 (03:26→09:23)
[2018-04-05] MEDS: PANTOPRAZOLE (EC) 40 MG TAB PO ×2 (05:17→17:20)
[2018-04-05] MEDS: CIPROFLOXACIN 500 MG TAB PO ×2 (05:17→17:20)
[2018-04-05 06:47] LABS: ADD MAN DIFF? NO
[2018-04-05 06:57] LABS: BASOPHILS % 0.3 % (0.0-2.0); EOSINOPHILS # 0.4 10^3/ul (0.0-0.5); EOSINOPHILS % 4.6 % (0.0-7.0); HEMATOCRIT 35.8 % (37.0-47.0); HEMOGLOBIN 11.9 g/dl (12.0-16.0); LYMPHOCYTES # 2.1 10^3/ul (0.8-2.9); LYMPHOCYTES % 27.5 % (15.0-51.0); MEAN CORPUSCULAR HGB CONC 33.2 g/dl (32.0-37.0); MEAN CORPUSCULAR VOLUME 87.3 fl (82.0-101.0); MEAN PLATELET VOLUME 9.4 fl (7.4-10.4); MONOCYTE # 0.9 10^3/ul (0.3-0.9); MONOCYTES % 12.3 % (0.0-11.0); NEUTROPHIL # 4.2 10^3/ul (1.6-7.5); NEUTROPHILS % 54.9 % (39.0-77.0); PLATELET COUNT 254 10^3/UL (140-415); RED CELL DISTRIBUTION WIDTH 11.9 % (11.5-14.5)
[2018-04-05 06:57] LABS: WHITE BLOOD COUNT 7.6 10^3/ul (4.8-10.8)
[2018-04-05 07:16] LABS: ALANINE AMINOTRANSFERASE 49 IU/L (13-69); ALBUMIN 2.9 g/dl (3.3-4.9); ALBUMIN/GLOBULIN RATIO 1.07; ALKALINE PHOSPHATASE 81 IU/L (42-121); ANION GAP 5 (5-13); ASPARTATE AMINO TRANSFERASE 51 IU/L (15-46); BILIRUBIN,INDIRECT 0.2 mg/dl (0-1.1); BILIRUBIN,TOTAL 0.2 mg/dl (0.2-1.3); BLOOD UREA NITROGEN 8 mg/dl (7-20); CALCIUM 9.2 mg/dl (8.4-10.2); CARBON DIOXIDE 25 mmol/L (21-31); CHLORIDE 106 mmol/L (97-110); CREATININE 0.62 mg/dl (0.44-1.00); Estimated GFR > 60 mL/min (>60); GLUCOSE 241 mg/dl (70-220); POTASSIUM 4.1 mmol/L (3.5-5.1); SODIUM 136 mmol/L (135-144); TOTAL PROTEIN 5.6 g/dl (6.1-8.1)
[2018-04-05 07:36] LABS: MAGNESIUM 1.4 mg/dl (1.7-2.5)
[2018-04-05] MEDS: metroNIDAZOLE 500 MG TAB PO ×3 (08:16→20:34)
[2018-04-05] MEDS: SUCRALFATE (100 MG/ML) 10ML CUP PO ×5 (08:18→20:34)
[2018-04-05] MEDS: CITALOPRAM 20 MG TAB PO (08:18)
[2018-04-05] MEDS: LISINOPRIL 5 MG TAB PO (08:21)
[2018-04-05] MEDS: ENOXAPARIN 30 MG/0.3 ML SYG SC (08:28)
[2018-04-05] MEDS: INSULIN ASPART [NOVOLOG] 3 ML PEN SC ×7 (08:28→20:33)
[2018-04-05] MEDS: MAGNESIUM SULFATE 3 GM in DEXTROSE 5% 100 ML IVPB (17:49)
[2018-04-05] MEDS: INSULIN GLARGINE [LANTus] (100 UNITS/ML) SYG SC (20:32)
[2018-04-05] MEDS: ATORVASTATIN 80 MG TAB PO (20:34)
[2018-04-05] MEDS: PAROXETINE 20 MG TAB PO (20:34)
[2018-04-06] MEDS: HYDROmorphONE 0.5 MG/0.5 ML SYG IV ×5 (02:20→21:10)
[2018-04-06] MEDS: ACCU-CHEK XX (02:26)
[2018-04-06] MEDS: PANTOPRAZOLE (EC) 40 MG TAB PO ×2 (05:53→17:33)
[2018-04-06] MEDS: CIPROFLOXACIN 500 MG TAB PO ×2 (05:53→17:33)
[2018-04-06 06:06] LABS: ADD MAN DIFF? NO
[2018-04-06 06:20] LABS: BASOPHILS % 0.3 % (0.0-2.0); EOSINOPHILS # 0.5 10^3/ul (0.0-0.5); EOSINOPHILS % 4.8 % (0.0-7.0); HEMATOCRIT 38.8 % (37.0-47.0); LYMPHOCYTES # 2.3 10^3/ul (0.8-2.9); LYMPHOCYTES % 23.1 % (15.0-51.0); MEAN CORPUSCULAR HEMOGLOBIN 29.1 pg (29.0-33.0); MEAN CORPUSCULAR HGB CONC 33.5 g/dl (32.0-37.0); MEAN CORPUSCULAR VOLUME 86.8 fl (82.0-101.0); MEAN PLATELET VOLUME 10.8 fl (7.4-10.4); MONOCYTE # 1.1 10^3/ul (0.3-0.9); MONOCYTES % 10.7 % (0.0-11.0); NEUTROPHIL # 6.1 10^3/ul (1.6-7.5); NEUTROPHILS % 60.7 % (39.0-77.0); PLATELET COUNT 212 10^3/UL (140-415); RED BLOOD COUNT 4.47 10^6/ul (4.20-5.40); RED CELL DISTRIBUTION WIDTH 11.9 % (11.5-14.5)
[2018-04-06 06:20] LABS: WHITE BLOOD COUNT 10.1 10^3/ul (4.8-10.8)
[2018-04-06 06:21] LABS: POSITIVE DIFF @See below
[2018-04-06 06:43] LABS: PHOSPHORUS 3.2 mg/dl (2.5-4.9)
[2018-04-06 06:43] LABS: MAGNESIUM 1.6 mg/dl (1.7-2.5)
[2018-04-06 07:02] LABS: ALANINE AMINOTRANSFERASE 54 IU/L (13-69); ALBUMIN 3.3 g/dl (3.3-4.9); ALBUMIN/GLOBULIN RATIO 1.13; ALKALINE PHOSPHATASE 87 IU/L (42-121); ANION GAP 6 (5-13); ASPARTATE AMINO TRANSFERASE 50 IU/L (15-46); BILIRUBIN,INDIRECT 0.3 mg/dl (0-1.1); BILIRUBIN,TOTAL 0.3 mg/dl (0.2-1.3); BLOOD UREA NITROGEN 11 mg/dl (7-20); CALCIUM 9.9 mg/dl (8.4-10.2); CARBON DIOXIDE 27 mmol/L (21-31); CHLORIDE 103 mmol/L (97-110); CREATININE 0.62 mg/dl (0.44-1.00); Estimated GFR > 60 mL/min (>60); GLUCOSE 242 mg/dl (70-220); POTASSIUM 4.1 mmol/L (3.5-5.1); SODIUM 136 mmol/L (135-144); TOTAL PROTEIN 6.2 g/dl (6.1-8.1)
[2018-04-06] MEDS: INSULIN ASPART [NOVOLOG] 3 ML PEN SC ×7 (08:15→21:16)
[2018-04-06] MEDS: SUCRALFATE (100 MG/ML) 10ML CUP PO ×4 (08:16→21:18)
[2018-04-06] MEDS: metroNIDAZOLE 500 MG TAB PO ×3 (08:16→21:18)
[2018-04-06] MEDS: LISINOPRIL 5 MG TAB PO (08:19)
[2018-04-06] MEDS: CITALOPRAM 20 MG TAB PO (08:19)
[2018-04-06] MEDS: ENOXAPARIN 30 MG/0.3 ML SYG SC (08:19)
[2018-04-06] MEDS: HYDROCODONE/APAP (5/325) TAB PO ×2 (08:28→14:42)
[2018-04-06] MEDS: KETOROLAC 30 MG INJ IV ×2 (09:18→15:37)
[2018-04-06] MEDS: MAGNESIUM SULFATE 2 GM/50 ML 50 ML IVPB (13:37)
[2018-04-06] MEDS: INSULIN GLARGINE [LANTus] (100 UNITS/ML) SYG SC (21:17)
[2018-04-06] MEDS: ATORVASTATIN 80 MG TAB PO (21:18)
[2018-04-06] MEDS: PAROXETINE 20 MG TAB PO (21:19)
[2018-04-07] MEDS: HYDROmorphONE 0.5 MG/0.5 ML SYG IV ×7 (01:11→22:01)
[2018-04-07] MEDS: ACCU-CHEK XX (02:11)
[2018-04-07] MEDS: PANTOPRAZOLE (EC) 40 MG TAB PO ×2 (05:49→17:00)
[2018-04-07] MEDS: CIPROFLOXACIN 500 MG TAB PO ×2 (05:49→17:00)
[2018-04-07 06:42] LABS: INR 1.05; PROTIME 13.8 Sec (11.9-14.9); PT RATIO 1.1
[2018-04-07 07:13] LABS: ALANINE AMINOTRANSFERASE 47 IU/L (13-69); ALBUMIN 3.3 g/dl (3.3-4.9); ALBUMIN/GLOBULIN RATIO 1.13; ALKALINE PHOSPHATASE 73 IU/L (42-121); ANION GAP 9 (5-13); ASPARTATE AMINO TRANSFERASE 41 IU/L (15-46); BILIRUBIN,INDIRECT 0.3 mg/dl (0-1.1); BILIRUBIN,TOTAL 0.3 mg/dl (0.2-1.3); BLOOD UREA NITROGEN 17 mg/dl (7-20); CARBON DIOXIDE 27 mmol/L (21-31); CHLORIDE 103 mmol/L (97-110); CREATININE 0.77 mg/dl (0.44-1.00); Estimated GFR > 60 mL/min (>60); GLUCOSE 229 mg/dl (70-220); POTASSIUM 4.4 mmol/L (3.5-5.1); SODIUM 139 mmol/L (135-144); TOTAL PROTEIN 6.2 g/dl (6.1-8.1)
[2018-04-07 07:16] LABS: MAGNESIUM 1.6 mg/dl (1.7-2.5)
[2018-04-07 07:16] LABS: PHOSPHORUS 3.5 mg/dl (2.5-4.9)
[2018-04-07] MEDS: INSULIN ASPART [NOVOLOG] 3 ML PEN SC ×7 (07:59→20:40)
[2018-04-07] MEDS: ENOXAPARIN 30 MG/0.3 ML SYG SC (08:01)
[2018-04-07] MEDS: metroNIDAZOLE 500 MG TAB PO ×3 (08:02→20:34)
[2018-04-07] MEDS: SUCRALFATE (100 MG/ML) 10ML CUP PO ×4 (08:02→20:34)
[2018-04-07] MEDS: CITALOPRAM 20 MG TAB PO (08:02)
[2018-04-07] MEDS: LISINOPRIL 5 MG TAB PO (08:03)
[2018-04-07] MEDS: MAGNESIUM SULFATE 2 GM/50 ML 50 ML IVPB (12:44)
[2018-04-07] MEDS: HYDROCODONE/APAP (5/325) TAB PO ×2 (12:44→20:37)
[2018-04-07] MEDS: BISACODYL (EC) 5 MG TAB PO (12:44)
[2018-04-07] MEDS: MAGNESIUM CITRATE 300 ML BTL PO (16:54)
[2018-04-07] MEDS: POLYETHYLENE GLYCOL 3350 119 GM POWDER PO (17:26)
[2018-04-07] MEDS: PAROXETINE 20 MG TAB PO (20:33)
[2018-04-07] MEDS: ATORVASTATIN 80 MG TAB PO (20:34)
[2018-04-07] MEDS: INSULIN GLARGINE [LANTus] (100 UNITS/ML) SYG SC (20:38)
[2018-04-08] MEDS: ACCU-CHEK XX (02:00)
[2018-04-08] MEDS: HYDROmorphONE 0.5 MG/0.5 ML SYG IV ×6 (02:06→23:11)
[2018-04-08] MEDS: HYDROCODONE/APAP (5/325) TAB PO (04:31)
[2018-04-08 05:35] LABS: ADD MAN DIFF? NO
[2018-04-08 05:41] LABS: BASOPHILS % 0.4 % (0.0-2.0); EOSINOPHILS # 0.4 10^3/ul (0.0-0.5); EOSINOPHILS % 3.9 % (0.0-7.0); HEMATOCRIT 39.8 % (37.0-47.0); HEMOGLOBIN 13.5 g/dl (12.0-16.0); LYMPHOCYTES # 2.9 10^3/ul (0.8-2.9); MEAN CORPUSCULAR HEMOGLOBIN 29.3 pg (29.0-33.0); MEAN CORPUSCULAR HGB CONC 33.9 g/dl (32.0-37.0); MEAN CORPUSCULAR VOLUME 86.5 fl (82.0-101.0); MONOCYTE # 0.9 10^3/ul (0.3-0.9); NEUTROPHILS % 54.2 % (39.0-77.0); PLATELET COUNT 320 10^3/UL (140-415); RED CELL DISTRIBUTION WIDTH 12.2 % (11.5-14.5)
[2018-04-08 05:41] LABS: WHITE BLOOD COUNT 9.3 10^3/ul (4.8-10.8)
[2018-04-08 06:07] LABS: PHOSPHORUS 3.8 mg/dl (2.5-4.9)
[2018-04-08 06:07] LABS: MAGNESIUM 1.7 mg/dl (1.7-2.5)
[2018-04-08] MEDS: CIPROFLOXACIN 500 MG TAB PO ×2 (06:08→18:11)
[2018-04-08] MEDS: POLYETHYLENE GLYCOL 3350 119 GM POWDER PO (06:09)
[2018-04-08] MEDS: PANTOPRAZOLE (EC) 40 MG TAB PO ×2 (06:09→18:11)
[2018-04-08 06:17] LABS: ALANINE AMINOTRANSFERASE 52 IU/L (13-69); ALBUMIN 3.3 g/dl (3.3-4.9); ALBUMIN/GLOBULIN RATIO 1.13; ALKALINE PHOSPHATASE 71 IU/L (42-121); ANION GAP 7 (5-13); ASPARTATE AMINO TRANSFERASE 43 IU/L (15-46); BILIRUBIN,INDIRECT 0.2 mg/dl (0-1.1); BILIRUBIN,TOTAL 0.2 mg/dl (0.2-1.3); BLOOD UREA NITROGEN 15 mg/dl (7-20); CALCIUM 9.9 mg/dl (8.4-10.2); CARBON DIOXIDE 27 mmol/L (21-31); CHLORIDE 105 mmol/L (97-110); CREATININE 0.67 mg/dl (0.44-1.00); Estimated GFR > 60 mL/min (>60); GLUCOSE 153 mg/dl (70-220); POTASSIUM 3.8 mmol/L (3.5-5.1); SODIUM 139 mmol/L (135-144); TOTAL PROTEIN 6.2 g/dl (6.1-8.1)
[2018-04-08] MEDS ORDERED: PROPOFOL 200 MG INJ (07:00)
[2018-04-08] MEDS: INSULIN ASPART [NOVOLOG] 3 ML PEN SC ×7 (08:08→20:51)
[2018-04-08] MEDS: ENOXAPARIN 30 MG/0.3 ML SYG SC (08:09)
[2018-04-08] MEDS: BISACODYL (EC) 5 MG TAB PO (08:10)
[2018-04-08] MEDS: metroNIDAZOLE 500 MG TAB PO ×3 (08:10→20:46)
[2018-04-08] MEDS: CITALOPRAM 20 MG TAB PO (08:10)
[2018-04-08] MEDS: SUCRALFATE (100 MG/ML) 10ML CUP PO ×4 (08:10→20:46)
[2018-04-08] MEDS: LISINOPRIL 5 MG TAB PO (08:11)
[2018-04-08] MEDS: PROPOFOL 20 ML (16:19)
[2018-04-08] MEDS ORDERED: ONDANSETRON 4 MG INJ IV (16:30)
[2018-04-08] MEDS: FENTAnyl 50 MCG/ML VIAL (16:31)
[2018-04-08] MEDS: ATORVASTATIN 80 MG TAB PO (20:46)
[2018-04-08] MEDS: PAROXETINE 20 MG TAB PO (20:46)
[2018-04-08] MEDS: INSULIN GLARGINE [LANTus] (100 UNITS/ML) SYG SC (20:53)
[2018-04-09] MEDS: ACCU-CHEK XX (02:00)
[2018-04-09] MEDS: HYDROmorphONE 0.5 MG/0.5 ML SYG IV ×5 (03:25→21:53)
[2018-04-09] MEDS: PANTOPRAZOLE (EC) 40 MG TAB PO ×2 (06:29→17:02)
[2018-04-09] MEDS: CIPROFLOXACIN 500 MG TAB PO (06:29)
[2018-04-09] MEDS: HYDROCODONE/APAP (5/325) TAB PO (06:32)
[2018-04-09] MEDS: INSULIN ASPART [NOVOLOG] 3 ML PEN SC ×7 (08:17→20:45)
[2018-04-09] MEDS: ENOXAPARIN 30 MG/0.3 ML SYG SC (08:19)
[2018-04-09] MEDS: SUCRALFATE (100 MG/ML) 10ML CUP PO ×4 (08:20→20:42)
[2018-04-09] MEDS: CITALOPRAM 20 MG TAB PO (08:20)
[2018-04-09] MEDS: LISINOPRIL 5 MG TAB PO (08:21)
[2018-04-09] MEDS: metroNIDAZOLE 500 MG TAB PO ×2 (08:22→12:34)
[2018-04-09] MEDS: traMADol 50 MG TAB PO (11:38)
[2018-04-09] MEDS: ATORVASTATIN 80 MG TAB PO (20:42)
[2018-04-09] MEDS: INSULIN GLARGINE [LANTus] (100 UNITS/ML) SYG SC (20:43)
[2018-04-09] MEDS: PAROXETINE 20 MG TAB PO (20:46)
[2018-04-10] MEDS: ACCU-CHEK XX (02:00)
[2018-04-10] MEDS: HYDROmorphONE 0.5 MG/0.5 ML SYG IV ×6 (02:04→22:39)
[2018-04-10 06:06] LABS: ADD MAN DIFF? NO
[2018-04-10 06:07] LABS: BASOPHIL # 0.1 10^3/ul (0.0-0.1); BASOPHILS % 0.5 % (0.0-2.0); EOSINOPHILS # 0.2 10^3/ul (0.0-0.5); EOSINOPHILS % 2.1 % (0.0-7.0); HEMATOCRIT 41.1 % (37.0-47.0); HEMOGLOBIN 13.9 g/dl (12.0-16.0); LYMPHOCYTES # 3.2 10^3/ul (0.8-2.9); LYMPHOCYTES % 30.7 % (15.0-51.0); MEAN CORPUSCULAR HEMOGLOBIN 29.6 pg (29.0-33.0); MEAN CORPUSCULAR HGB CONC 33.8 g/dl (32.0-37.0); MEAN CORPUSCULAR VOLUME 87.6 fl (82.0-101.0); MEAN PLATELET VOLUME 8.8 fl (7.4-10.4); MONOCYTE # 0.8 10^3/ul (0.3-0.9); MONOCYTES % 7.2 % (0.0-11.0); NEUTROPHIL # 6.1 10^3/ul (1.6-7.5); NEUTROPHILS % 58.9 % (39.0-77.0); PLATELET COUNT 358 10^3/UL (140-415); RED BLOOD COUNT 4.69 10^6/ul (4.20-5.40); RED CELL DISTRIBUTION WIDTH 12.2 % (11.5-14.5)
[2018-04-10 06:07] LABS: WHITE BLOOD COUNT 10.4 10^3/ul (4.8-10.8)
[2018-04-10] MEDS: PANTOPRAZOLE (EC) 40 MG TAB PO ×2 (06:17→17:12)
[2018-04-10 06:25] LABS: ANION GAP 7 (5-13); BLOOD UREA NITROGEN 18 mg/dl (7-20); CALCIUM 10.5 mg/dl (8.4-10.2); CARBON DIOXIDE 26 mmol/L (21-31); CHLORIDE 105 mmol/L (97-110); CREATININE 0.81 mg/dl (0.44-1.00); Estimated GFR > 60 mL/min (>60); GLUCOSE 216 mg/dl (70-220); SODIUM 138 mmol/L (135-144)
[2018-04-10] MEDS: SUCRALFATE (100 MG/ML) 10ML CUP PO ×4 (08:07→20:41)
[2018-04-10] MEDS: CITALOPRAM 20 MG TAB PO (08:08)
[2018-04-10] MEDS: LISINOPRIL 5 MG TAB PO (08:08)
[2018-04-10] MEDS: ENOXAPARIN 30 MG/0.3 ML SYG SC (08:09)
[2018-04-10] MEDS: INSULIN ASPART [NOVOLOG] 3 ML PEN SC ×7 (08:10→20:50)
[2018-04-10] MEDS: ATORVASTATIN 80 MG TAB PO (20:41)
[2018-04-10] MEDS: PAROXETINE 20 MG TAB PO (20:47)
[2018-04-10] MEDS: INSULIN GLARGINE [LANTus] (100 UNITS/ML) SYG SC (21:03)
[2018-04-10] MEDS: HYDROCODONE/APAP (5/325) TAB PO (22:05)
[2018-04-10] MEDS: ZOLPIDEM 5 MG TAB PO (23:47)
[2018-04-11] MEDS: ACCU-CHEK XX (02:00)
[2018-04-11] MEDS: HYDROmorphONE 0.5 MG/0.5 ML SYG IV ×3 (04:32→12:26)
[2018-04-11] MEDS: PANTOPRAZOLE (EC) 40 MG TAB PO ×2 (05:39→17:19)
[2018-04-11 06:41] LABS: ADD MAN DIFF? NO
[2018-04-11 06:48] LABS: WHITE BLOOD COUNT 9.2 10^3/ul (4.8-10.8)
[2018-04-11 06:48] LABS: BASOPHILS % 0.4 % (0.0-2.0); EOSINOPHILS # 0.2 10^3/ul (0.0-0.5); EOSINOPHILS % 2.3 % (0.0-7.0); HEMOGLOBIN 13.2 g/dl (12.0-16.0); LYMPHOCYTES # 2.3 10^3/ul (0.8-2.9); LYMPHOCYTES % 24.9 % (15.0-51.0); MEAN CORPUSCULAR HEMOGLOBIN 29.1 pg (29.0-33.0); MEAN CORPUSCULAR VOLUME 88.3 fl (82.0-101.0); MONOCYTE # 0.6 10^3/ul (0.3-0.9); MONOCYTES % 6.4 % (0.0-11.0); NEUTROPHILS % 65.8 % (39.0-77.0); PLATELET COUNT 341 10^3/UL (140-415); RED BLOOD COUNT 4.53 10^6/ul (4.20-5.40); RED CELL DISTRIBUTION WIDTH 12.3 % (11.5-14.5)
[2018-04-11 07:09] LABS: ALANINE AMINOTRANSFERASE 33 IU/L (13-69); ALBUMIN 3.4 g/dl (3.3-4.9); ALBUMIN/GLOBULIN RATIO 1.13; ALKALINE PHOSPHATASE 66 IU/L (42-121); ANION GAP 7 (5-13); ASPARTATE AMINO TRANSFERASE 24 IU/L (15-46); BILIRUBIN,INDIRECT 0.5 mg/dl (0-1.1); BILIRUBIN,TOTAL 0.5 mg/dl (0.2-1.3); BLOOD UREA NITROGEN 21 mg/dl (7-20); CALCIUM 10.2 mg/dl (8.4-10.2); CARBON DIOXIDE 28 mmol/L (21-31); CHLORIDE 100 mmol/L (97-110); CREATININE 0.77 mg/dl (0.44-1.00); Estimated GFR > 60 mL/min (>60); GLUCOSE 232 mg/dl (70-220); POTASSIUM 4.1 mmol/L (3.5-5.1); SODIUM 135 mmol/L (135-144); TOTAL PROTEIN 6.4 g/dl (6.1-8.1)
[2018-04-11] MEDS: HYDROCODONE/APAP (5/325) TAB PO ×2 (07:59→16:49)
[2018-04-11] MEDS: INSULIN ASPART [NOVOLOG] 3 ML PEN SC ×6 (08:05→17:18)
[2018-04-11] MEDS: CITALOPRAM 20 MG TAB PO (08:27)
[2018-04-11] MEDS: LISINOPRIL 5 MG TAB PO (08:27)
[2018-04-11] MEDS: SUCRALFATE (100 MG/ML) 10ML CUP PO ×3 (08:27→16:33)
[2018-04-11] MEDS: ENOXAPARIN 30 MG/0.3 ML SYG SC (08:28)
[2018-04-11] MEDS: ACETAMINOPHEN 325 MG TAB PO (16:34)
[2018-04-11] MEDS ORDERED: HYDROCODONE/APAP (5/325) TAB (16:47)
== END 2018-04-11 18:00 | disposition home or self-care (01) | DRG 384 ==
LOC: E/R 07:52 → PP2 12:21
PROVIDERS: Internal Medicine
PROC: 0DB98ZX Excision of Duodenum, Via Natural or Artificial Opening Endoscopic, Diagnostic (ICD-10-PCS; principal; 2018-04-08 15:30)
PROC: 0DB68ZX Excision of Stomach, Via Natural or Artificial Opening Endoscopic, Diagnostic (ICD-10-PCS; 2018-04-08 15:30)
PROC: 0DJD8ZZ Inspection of Lower Intestinal Tract, Via Natural or Artificial Opening Endoscopic (ICD-10-PCS; 2018-04-08 15:30)
DX: K26.3 Acute duodenal ulcer without hemorrhage or perforation (principal); E11.8 Type 2 diabetes mellitus with unspecified complications; I10 Essential (primary) hypertension; F32.9 Major depressive disorder, single episode, unspecified; E78.5 Hyperlipidemia, unspecified; K29.70 Gastritis, unspecified, without bleeding; K44.9 Diaphragmatic hernia without obstruction or gangrene
CPT/HCPCS: 36415; 71045; 74018; 74177; 74178; 80048; 80053; 80061; 81001; 82150; 82270; 82378; 82962; 83036; 83605; 83690; 83735; 84100; 84443; 84484; 85025; 85610; 85651; 86140; 87045; 87086; 87338; 88305; 93005; 96361; 96374; 96375; 99285-25

== ENCOUNTER 2018-05-03 15:26 | Inpatient (IN) | payer MEDICARE, OTHER ==
[2018-05-03 18:55] LABS: ADD MAN DIFF? NO
[2018-05-03 18:58] LABS: BASOPHILS % 0.4 % (0.0-2.0); EOSINOPHILS # 0.2 10^3/ul (0.0-0.5); EOSINOPHILS % 1.7 % (0.0-7.0); LYMPHOCYTES # 3.1 10^3/ul (0.8-2.9); LYMPHOCYTES % 34.4 % (15.0-51.0); MEAN CORPUSCULAR HEMOGLOBIN 29.7 pg (29.0-33.0); MEAN CORPUSCULAR HGB CONC 32.5 g/dl (32.0-37.0); MEAN CORPUSCULAR VOLUME 91.5 fl (82.0-101.0); MONOCYTE # 0.7 10^3/ul (0.3-0.9); MONOCYTES % 8.2 % (0.0-11.0); NEUTROPHILS % 54.7 % (39.0-77.0); PLATELET COUNT 277 10^3/UL (140-415); RED BLOOD COUNT 4.37 10^6/ul (4.20-5.40); RED CELL DISTRIBUTION WIDTH 12.6 % (11.5-14.5)
[2018-05-03] MEDS: FAMOTIDINE 20 MG INJ IV (19:02)
[2018-05-03] MEDS: SOD CHLORIDE 0.9% 1,000 ML IV (19:02)
[2018-05-03] MEDS: HYDROmorphONE 1 MG/ML SYG IV ×2 (19:02→19:57)
[2018-05-03] MEDS: ONDANSETRON 4 MG INJ IV (19:02)
[2018-05-03 19:20] LABS: ALANINE AMINOTRANSFERASE 87 IU/L (13-69); ALBUMIN 3.8 g/dl (3.3-4.9); ALBUMIN/GLOBULIN RATIO 1.18; ALKALINE PHOSPHATASE 98 IU/L (42-121); ANION GAP 9 (5-13); ASPARTATE AMINO TRANSFERASE 43 IU/L (15-46); BILIRUBIN,INDIRECT 0.2 mg/dl (0-1.1); BILIRUBIN,TOTAL 0.2 mg/dl (0.2-1.3); BLOOD UREA NITROGEN 38 mg/dl (7-20); CALCIUM 10.3 mg/dl (8.4-10.2); CARBON DIOXIDE 25 mmol/L (21-31); CHLORIDE 101 mmol/L (97-110); CREATININE 1.14 mg/dl (0.44-1.00); Estimated GFR 48 mL/min (>60); GLUCOSE 213 mg/dl (70-220); LIPASE 38 U/L (23-300); POTASSIUM 4.1 mmol/L (3.5-5.1); SODIUM 135 mmol/L (135-144)
[2018-05-03 19:31] LABS: TROPONIN-I < 0.012 ng/ml (0.000-0.120)
[2018-05-03 19:58] LABS: ADD UMIC NO; UR ASCORBIC ACID NEGATIVE (NEGATIVE); UR BILIRUBIN (Dip) NEGATIVE (NEGATIVE); UR BLOOD (Dip) NEGATIVE (NEGATIVE); UR CLARITY CLEAR (CLEAR); UR COLOR YELLOW (YELLOW); UR GLUCOSE (Dip) 1+ mg/dL (NEGATIVE); UR KETONES (Dip) NEGATIVE (NEGATIVE); UR LEUKOCYTE ESTERASE (Dip) NEGATIVE Leu/ul (NEGATIVE); UR NITRITE (Dip) NEGATIVE (NEGATIVE); UR SPECIFIC GRAVITY (Dip) 1.014 (1.003-1.030); UR TOTAL PROTEIN (Dip) NEGATIVE (NEGATIVE); UR UROBILINOGEN (Dip) NEGATIVE (NEGATIVE)
[2018-05-03] MEDS ORDERED: ONDANSETRON 4 MG INJ IV ×2 (20:30→21:00)
[2018-05-03] MEDS ORDERED: SOD CHLORIDE 0.9% 1,000 ML IV (20:30)
[2018-05-03] MEDS ORDERED: ACETAMINOPHEN 325 MG TAB PO (20:30)
[2018-05-03] MEDS ORDERED: NACL 0.9% 3 ML SYG IV (21:00)
[2018-05-03] MEDS ORDERED: DOCUSATE SODIUM 100 MG CAP PO (21:00)
[2018-05-03] MEDS ORDERED: BISACODYL (EC) 5 MG TAB PO (21:00)
[2018-05-03] MEDS ORDERED: GLUCAGON 1 MG INJ IM (22:00)
[2018-05-03] MEDS ORDERED: DEXTROSE 50% 50 ML SYRINGE IV ×2 (22:00)
[2018-05-03] MEDS ORDERED: GLUCOSE GEL 15 GRAM TUBE PO ×2 (22:00)
[2018-05-03] MEDS ORDERED: GLUCOSE GEL 15 GRAM TUBE BUCCAL (22:00)
[2018-05-03] MEDS: DEXTROSE 5%-0.45% NACL 1,000 ML IV (22:30)
[2018-05-03] MEDS: LIDOCAINE/MYLANTA 40 ML BTL PO (22:30)
[2018-05-03] MEDS: SUCRALFATE 1 GM TAB PO (22:30)
[2018-05-03] MEDS: HYDROmorphONE 0.5 MG/0.5 ML SYG IV (23:44)
[2018-05-04] MEDS: INSULIN ASPART [NOVOLOG] 3 ML PEN SC ×6 (01:00→20:55)
[2018-05-04] MEDS: SUCRALFATE 1 GM TAB PO ×6 (01:03→23:43)
[2018-05-04] MEDS: LORAZEPAM 0.5 MG TAB PO ×2 (01:31→20:45)
[2018-05-04] MEDS: ACCU-CHEK XX (02:00)
[2018-05-04] MEDS: HYDROmorphONE 0.5 MG/0.5 ML SYG IV ×3 (03:46→10:01)
[2018-05-04] MEDS: PANTOPRAZOLE 40 MG INJ IV ×2 (05:46→17:23)
[2018-05-04 06:26] LABS: ADD MAN DIFF? NO
[2018-05-04 06:30] LABS: BASOPHILS % 0.5 % (0.0-2.0); EOSINOPHILS # 0.2 10^3/ul (0.0-0.5); EOSINOPHILS % 2.5 % (0.0-7.0); HEMATOCRIT 35.1 % (37.0-47.0); HEMOGLOBIN 11.3 g/dl (12.0-16.0); LYMPHOCYTES # 2.7 10^3/ul (0.8-2.9); LYMPHOCYTES % 41.2 % (15.0-51.0); MEAN CORPUSCULAR HEMOGLOBIN 29.5 pg (29.0-33.0); MEAN CORPUSCULAR HGB CONC 32.2 g/dl (32.0-37.0); MEAN CORPUSCULAR VOLUME 91.6 fl (82.0-101.0); MEAN PLATELET VOLUME 9.5 fl (7.4-10.4); MONOCYTE # 0.5 10^3/ul (0.3-0.9); MONOCYTES % 7.9 % (0.0-11.0); NEUTROPHIL # 3.1 10^3/ul (1.6-7.5); NEUTROPHILS % 47.6 % (39.0-77.0); PLATELET COUNT 256 10^3/UL (140-415); RED BLOOD COUNT 3.83 10^6/ul (4.20-5.40); RED CELL DISTRIBUTION WIDTH 12.8 % (11.5-14.5)
[2018-05-04 06:30] LABS: WHITE BLOOD COUNT 6.4 10^3/ul (4.8-10.8)
[2018-05-04 06:51] LABS: HEMOGLOBIN A1C 12.5 % (0-5.9)
[2018-05-04 06:53] LABS: MAGNESIUM 1.4 mg/dl (1.7-2.5)
[2018-05-04 06:54] LABS: ALANINE AMINOTRANSFERASE 72 IU/L (13-69); ALBUMIN/GLOBULIN RATIO 1.15; ALKALINE PHOSPHATASE 71 IU/L (42-121); ANION GAP 5 (5-13); ASPARTATE AMINO TRANSFERASE 38 IU/L (15-46); BILIRUBIN,INDIRECT 0.2 mg/dl (0-1.1); BILIRUBIN,TOTAL 0.2 mg/dl (0.2-1.3); BLOOD UREA NITROGEN 25 mg/dl (7-20); CALCIUM 9.6 mg/dl (8.4-10.2); CARBON DIOXIDE 25 mmol/L (21-31); CHLORIDE 109 mmol/L (97-110); CREATININE 0.81 mg/dl (0.44-1.00); Estimated GFR > 60 mL/min (>60); GLUCOSE 96 mg/dl (70-220); SODIUM 139 mmol/L (135-144); TOTAL PROTEIN 5.6 g/dl (6.1-8.1)
[2018-05-04] MEDS ORDERED: INSULIN ASPART [NOVOLOG] 3 ML PEN SC (08:00)
[2018-05-04] MEDS: MAGNESIUM SULFATE 3 GM in DEXTROSE 5% 100 ML IVPB (11:42)
[2018-05-04] MEDS: DEXTROSE 5%-0.45% NACL 1,000 ML IV (11:44)
[2018-05-04 12:27] LABS: ADD MAN DIFF? NO
[2018-05-04 12:34] LABS: BASOPHILS % 0.6 % (0.0-2.0); EOSINOPHILS # 0.1 10^3/ul (0.0-0.5); EOSINOPHILS % 2.2 % (0.0-7.0); LYMPHOCYTES # 2.5 10^3/ul (0.8-2.9); LYMPHOCYTES % 39.1 % (15.0-51.0); MEAN CORPUSCULAR HEMOGLOBIN 29.9 pg (29.0-33.0); MEAN CORPUSCULAR HGB CONC 32.4 g/dl (32.0-37.0); MONOCYTE # 0.6 10^3/ul (0.3-0.9); NEUTROPHIL # 3.1 10^3/ul (1.6-7.5); NEUTROPHILS % 48.8 % (39.0-77.0); PLATELET COUNT 267 10^3/UL (140-415); RED BLOOD COUNT 4.02 10^6/ul (4.20-5.40); RED CELL DISTRIBUTION WIDTH 12.5 % (11.5-14.5)
[2018-05-04 12:34] LABS: WHITE BLOOD COUNT 6.3 10^3/ul (4.8-10.8)
[2018-05-04] MEDS: HYDROmorphONE 1 MG/ML SYG IV ×6 (12:41→23:40)
[2018-05-04] MEDS: SENNA TAB PO ×2 (12:41→20:45)
[2018-05-04] MEDS: HYOSCYAMINE 0.125 MG SUBL TAB SL ×3 (14:43→20:59)
[2018-05-04 18:28] LABS: ADD MAN DIFF? NO
[2018-05-04 18:30] LABS: BASOPHILS % 0.6 % (0.0-2.0); EOSINOPHILS # 0.2 10^3/ul (0.0-0.5); EOSINOPHILS % 2.4 % (0.0-7.0); HEMOGLOBIN 12.2 g/dl (12.0-16.0); LYMPHOCYTES # 1.9 10^3/ul (0.8-2.9); LYMPHOCYTES % 28.6 % (15.0-51.0); MEAN CORPUSCULAR HEMOGLOBIN 29.6 pg (29.0-33.0); MEAN CORPUSCULAR HGB CONC 32.1 g/dl (32.0-37.0); MEAN CORPUSCULAR VOLUME 92.2 fl (82.0-101.0); MEAN PLATELET VOLUME 9.6 fl (7.4-10.4); MONOCYTE # 0.6 10^3/ul (0.3-0.9); MONOCYTES % 9.1 % (0.0-11.0); NEUTROPHIL # 3.9 10^3/ul (1.6-7.5); NEUTROPHILS % 58.9 % (39.0-77.0); PLATELET COUNT 206 10^3/UL (140-415); RED BLOOD COUNT 4.12 10^6/ul (4.20-5.40); RED CELL DISTRIBUTION WIDTH 12.7 % (11.5-14.5)
[2018-05-04 18:30] LABS: WHITE BLOOD COUNT 6.7 10^3/ul (4.8-10.8)
[2018-05-04] MEDS: ATORVASTATIN 80 MG TAB PO (20:45)
[2018-05-04] MEDS: INSULIN GLARGINE [LANTus] (100 UNITS/ML) SYG SC (20:48)
[2018-05-04] MEDS ORDERED: INSULIN GLARGINE [LANtus] 3 ML PEN SC ×2 (21:00)
[2018-05-05 00:45] LABS: ADD MAN DIFF? NO
[2018-05-05 01:00] LABS: BASOPHILS % 0.6 % (0.0-2.0); EOSINOPHILS # 0.2 10^3/ul (0.0-0.5); EOSINOPHILS % 3.1 % (0.0-7.0); HEMATOCRIT 40.3 % (37.0-47.0); HEMOGLOBIN 12.4 g/dl (12.0-16.0); LYMPHOCYTES # 2.1 10^3/ul (0.8-2.9); MEAN CORPUSCULAR HEMOGLOBIN 29.5 pg (29.0-33.0); MEAN CORPUSCULAR HGB CONC 30.8 g/dl (32.0-37.0); MEAN PLATELET VOLUME 9.3 fl (7.4-10.4); MONOCYTE # 0.6 10^3/ul (0.3-0.9); NEUTROPHIL # 3.5 10^3/ul (1.6-7.5); RED CELL DISTRIBUTION WIDTH 12.5 % (11.5-14.5)
[2018-05-05 01:00] LABS: WHITE BLOOD COUNT 6.4 10^3/ul (4.8-10.8)
[2018-05-05 01:05] LABS: PLATELET COUNT 271 10^3/UL (140-415); POSITIVE DIFF @See below
[2018-05-05] MEDS: ACCU-CHEK XX (02:00)
[2018-05-05] MEDS: HYDROmorphONE 1 MG/ML SYG IV ×5 (02:09→10:51)
[2018-05-05] MEDS: DEXTROSE 5%-0.45% NACL 1,000 ML IV ×2 (04:43→17:29)
[2018-05-05] MEDS: ACETAMINOPHEN 325 MG TAB PO ×3 (06:08→23:33)
[2018-05-05] MEDS: HYOSCYAMINE 0.125 MG SUBL TAB SL ×3 (06:08→21:50)
[2018-05-05] MEDS: SUCRALFATE 1 GM TAB PO ×5 (06:08→23:34)
[2018-05-05 06:10] LABS: ADD MAN DIFF? NO
[2018-05-05] MEDS: PANTOPRAZOLE 40 MG INJ IV ×2 (06:10→17:29)
[2018-05-05 06:31] LABS: WHITE BLOOD COUNT 7.5 10^3/ul (4.8-10.8)
[2018-05-05 06:31] LABS: BASOPHILS % 0.5 % (0.0-2.0); EOSINOPHILS # 0.2 10^3/ul (0.0-0.5); EOSINOPHILS % 2.8 % (0.0-7.0); HEMATOCRIT 40.2 % (37.0-47.0); HEMOGLOBIN 13.3 g/dl (12.0-16.0); LYMPHOCYTES # 2.2 10^3/ul (0.8-2.9); LYMPHOCYTES % 29.3 % (15.0-51.0); MEAN CORPUSCULAR HEMOGLOBIN 29.8 pg (29.0-33.0); MEAN CORPUSCULAR HGB CONC 33.1 g/dl (32.0-37.0); MEAN CORPUSCULAR VOLUME 90.1 fl (82.0-101.0); MEAN PLATELET VOLUME 9.3 fl (7.4-10.4); MONOCYTE # 0.8 10^3/ul (0.3-0.9); MONOCYTES % 10.2 % (0.0-11.0); NEUTROPHIL # 4.2 10^3/ul (1.6-7.5); NEUTROPHILS % 56.9 % (39.0-77.0); NUCLEATED RED BLOOD CELLS% 0.4 /100WBC (0.0-0.0); PLATELET COUNT 224 10^3/UL (140-415); RED BLOOD COUNT 4.46 10^6/ul (4.20-5.40); RED CELL DISTRIBUTION WIDTH 12.4 % (11.5-14.5)
[2018-05-05 06:47] LABS: ALANINE AMINOTRANSFERASE 70 IU/L (13-69); ALBUMIN 3.3 g/dl (3.3-4.9); ALBUMIN/GLOBULIN RATIO 1.13; ALKALINE PHOSPHATASE 76 IU/L (42-121); ANION GAP 6 (5-13); ASPARTATE AMINO TRANSFERASE 44 IU/L (15-46); BILIRUBIN,INDIRECT 0.3 mg/dl (0-1.1); BILIRUBIN,TOTAL 0.3 mg/dl (0.2-1.3); BLOOD UREA NITROGEN 14 mg/dl (7-20); CALCIUM 10.1 mg/dl (8.4-10.2); CARBON DIOXIDE 26 mmol/L (21-31); CHLORIDE 107 mmol/L (97-110); CREATININE 0.68 mg/dl (0.44-1.00); Estimated GFR > 60 mL/min (>60); GLUCOSE 149 mg/dl (70-220); POTASSIUM 4.3 mmol/L (3.5-5.1); SODIUM 139 mmol/L (135-144); TOTAL PROTEIN 6.2 g/dl (6.1-8.1)
[2018-05-05] MEDS: INSULIN ASPART [NOVOLOG] 3 ML PEN SC ×4 (08:37→20:24)
[2018-05-05] MEDS: CITALOPRAM 20 MG TAB PO (08:38)
[2018-05-05] MEDS: SENNA TAB PO ×2 (08:38→20:22)
[2018-05-05] MEDS ORDERED: POLYETHYLENE GLYCOL 17 GM PACKET PO (14:30)
[2018-05-05] MEDS: NA PHOSPHATE/BIPHOS 133 ML ENEMA PR (14:42)
[2018-05-05] MEDS ORDERED: KETOROLAC 30 MG INJ IV (17:11)
[2018-05-05] MEDS: MAGNESIUM CITRATE 300 ML BTL PO (17:21)
[2018-05-05] MEDS ORDERED: BELLADONNA/PHENOBARBITAL 5ML CUP PO (17:30)
[2018-05-05] MEDS ORDERED: BELLADONNA/PHENOBARBITAL TAB PO (18:30)
[2018-05-05] MEDS: ATORVASTATIN 80 MG TAB PO (20:22)
[2018-05-05] MEDS: INSULIN GLARGINE [LANTus] (100 UNITS/ML) SYG SC (20:23)
[2018-05-06] MEDS: ACCU-CHEK XX (01:31)
[2018-05-06] MEDS: LORAZEPAM 0.5 MG TAB PO ×2 (02:26→16:45)
[2018-05-06] MEDS: DEXTROSE 5%-0.45% NACL 1,000 ML IV ×2 (04:44→05:28)
[2018-05-06] MEDS: HYOSCYAMINE 0.125 MG SUBL TAB SL ×3 (05:28→21:19)
[2018-05-06] MEDS: PANTOPRAZOLE 40 MG INJ IV ×2 (05:28→19:51)
[2018-05-06] MEDS: SUCRALFATE 1 GM TAB PO ×4 (05:28→23:42)
[2018-05-06] MEDS: ACETAMINOPHEN 325 MG TAB PO ×3 (05:33→22:41)
[2018-05-06 06:37] LABS: ADD MAN DIFF? NO
[2018-05-06 06:46] LABS: BASOPHILS % 0.2 % (0.0-2.0); EOSINOPHILS # 0.1 10^3/ul (0.0-0.5); EOSINOPHILS % 0.9 % (0.0-7.0); HEMATOCRIT 36.5 % (37.0-47.0); HEMOGLOBIN 12.9 g/dl (12.0-16.0); LYMPHOCYTES # 1.6 10^3/ul (0.8-2.9); LYMPHOCYTES % 19.5 % (15.0-51.0); MEAN CORPUSCULAR HEMOGLOBIN 30.6 pg (29.0-33.0); MEAN CORPUSCULAR HGB CONC 35.3 g/dl (32.0-37.0); MEAN CORPUSCULAR VOLUME 86.5 fl (82.0-101.0); MEAN PLATELET VOLUME 9.3 fl (7.4-10.4); MONOCYTE # 0.7 10^3/ul (0.3-0.9); NEUTROPHIL # 5.8 10^3/ul (1.6-7.5); NEUTROPHILS % 70.2 % (39.0-77.0); PLATELET COUNT 319 10^3/UL (140-415); RED BLOOD COUNT 4.22 10^6/ul (4.20-5.40); RED CELL DISTRIBUTION WIDTH 12.2 % (11.5-14.5)
[2018-05-06 06:46] LABS: WHITE BLOOD COUNT 8.2 10^3/ul (4.8-10.8)
[2018-05-06 07:10] LABS: ALANINE AMINOTRANSFERASE 57 IU/L (13-69); ALBUMIN 3.4 g/dl (3.3-4.9); ALBUMIN/GLOBULIN RATIO 1.17; ALKALINE PHOSPHATASE 86 IU/L (42-121); ANION GAP 9 (5-13); ASPARTATE AMINO TRANSFERASE 26 IU/L (15-46); BILIRUBIN,INDIRECT 0.4 mg/dl (0-1.1); BILIRUBIN,TOTAL 0.4 mg/dl (0.2-1.3); BLOOD UREA NITROGEN 10 mg/dl (7-20); CALCIUM 10.3 mg/dl (8.4-10.2); CARBON DIOXIDE 23 mmol/L (21-31); CHLORIDE 106 mmol/L (97-110); CREATININE 0.61 mg/dl (0.44-1.00); Estimated GFR > 60 mL/min (>60); GLUCOSE 322 mg/dl (70-220); POTASSIUM 3.6 mmol/L (3.5-5.1); SODIUM 138 mmol/L (135-144); TOTAL PROTEIN 6.3 g/dl (6.1-8.1)
[2018-05-06] MEDS: INSULIN ASPART [NOVOLOG] 3 ML PEN SC ×5 (08:24→21:15)
[2018-05-06] MEDS: CITALOPRAM 20 MG TAB PO (08:40)
[2018-05-06] MEDS: SENNA TAB PO ×2 (08:40→21:00)
[2018-05-06] MEDS ORDERED: hydrALAzine 20 MG INJ IV (15:00)
[2018-05-06] MEDS: BARIUM SULF 2% 450 ML BTL (BERRY SMOOTHIE) PO (16:00)
[2018-05-06] MEDS: SOD CHLORIDE 0.9% 100 ML (18:29)
[2018-05-06] MEDS: IOHEXOL 300MG/ML 150 ML BTL (18:29)
[2018-05-06] MEDS: METOCLOPRAMIDE 10 MG INJ IV (19:52)
[2018-05-06] MEDS: ATORVASTATIN 80 MG TAB PO (21:13)
[2018-05-06] MEDS: INSULIN GLARGINE [LANTus] (100 UNITS/ML) SYG SC (21:17)
[2018-05-07] MEDS: LORAZEPAM 0.5 MG TAB PO (00:52)
[2018-05-07] MEDS: ACCU-CHEK XX (01:23)
[2018-05-07] MEDS: ACETAMINOPHEN 325 MG TAB PO ×2 (04:52→10:49)
[2018-05-07] MEDS: PANTOPRAZOLE 40 MG INJ IV (05:54)
[2018-05-07] MEDS: SUCRALFATE 1 GM TAB PO ×2 (05:54→12:25)
[2018-05-07] MEDS: HYOSCYAMINE 0.125 MG SUBL TAB SL ×2 (05:54→13:15)
[2018-05-07 07:56] LABS: ADD MAN DIFF? NO
[2018-05-07 08:00] LABS: BASOPHILS % 0.4 % (0.0-2.0); EOSINOPHILS # 0.1 10^3/ul (0.0-0.5); EOSINOPHILS % 0.7 % (0.0-7.0); HEMATOCRIT 41.4 % (37.0-47.0); HEMOGLOBIN 14.1 g/dl (12.0-16.0); LYMPHOCYTES # 1.5 10^3/ul (0.8-2.9); LYMPHOCYTES % 15.1 % (15.0-51.0); MEAN CORPUSCULAR HEMOGLOBIN 29.4 pg (29.0-33.0); MEAN CORPUSCULAR HGB CONC 34.1 g/dl (32.0-37.0); MEAN CORPUSCULAR VOLUME 86.4 fl (82.0-101.0); MEAN PLATELET VOLUME 9.3 fl (7.4-10.4); MONOCYTE # 1.1 10^3/ul (0.3-0.9); MONOCYTES % 11.5 % (0.0-11.0); NEUTROPHIL # 6.9 10^3/ul (1.6-7.5); NEUTROPHILS % 71.8 % (39.0-77.0); PLATELET COUNT 394 10^3/UL (140-415); RED BLOOD COUNT 4.79 10^6/ul (4.20-5.40); RED CELL DISTRIBUTION WIDTH 12.3 % (11.5-14.5)
[2018-05-07 08:00] LABS: WHITE BLOOD COUNT 9.7 10^3/ul (4.8-10.8)
[2018-05-07] MEDS: INSULIN ASPART [NOVOLOG] 3 ML PEN SC ×4 (08:12→12:25)
[2018-05-07] MEDS: CITALOPRAM 20 MG TAB PO (08:16)
[2018-05-07] MEDS: SENNA TAB PO (08:17)
[2018-05-07 08:37] LABS: ALANINE AMINOTRANSFERASE 43 IU/L (13-69); ALBUMIN 3.7 g/dl (3.3-4.9); ALBUMIN/GLOBULIN RATIO 1.12; ALKALINE PHOSPHATASE 81 IU/L (42-121); ANION GAP 8 (5-13); ASPARTATE AMINO TRANSFERASE 25 IU/L (15-46); BILIRUBIN,INDIRECT 0.7 mg/dl (0-1.1); BILIRUBIN,TOTAL 0.7 mg/dl (0.2-1.3); BLOOD UREA NITROGEN 12 mg/dl (7-20); CALCIUM 10.7 mg/dl (8.4-10.2); CARBON DIOXIDE 23 mmol/L (21-31); CHLORIDE 106 mmol/L (97-110); CREATININE 0.92 mg/dl (0.44-1.00); Estimated GFR > 60 mL/min (>60); GLUCOSE 317 mg/dl (70-220); POTASSIUM 3.5 mmol/L (3.5-5.1); SODIUM 137 mmol/L (135-144)
== END 2018-05-07 13:50 | disposition home or self-care (01) | DRG 384 ==
LOC: E/R 15:26 → PP2 05-06 21:25
DX: K26.9 Duodenal ulcer, unspecified as acute or chronic, without hemorrhage or perforation (principal); K56.7 Ileus, unspecified; E66.9 Obesity, unspecified; Z68.38 Body mass index [BMI] 38.0-38.9, adult; E11.40 Type 2 diabetes mellitus with diabetic neuropathy, unspecified; K31.84 Gastroparesis; F32.9 Major depressive disorder, single episode, unspecified; K29.70 Gastritis, unspecified, without bleeding; Z79.891 Long term (current) use of opiate analgesic
CPT/HCPCS: 36415; 74176; 74177; 80053; 81003; 82962; 83036; 83690; 83735; 84484; 85025; 87081; 93005; 96374; 96375; 96376; 99285-25; G0378

== ENCOUNTER 2018-05-31 14:19 | Inpatient (IN) | payer MEDICARE, OTHER ==
[2018-05-31] MEDS: SOD CHLORIDE 0.9% 1,000 ML IV (19:36)
[2018-05-31 19:41] LABS: ADD MAN DIFF? NO
[2018-05-31 19:48] LABS: BASOPHILS % 0.4 % (0.0-2.0); EOSINOPHILS # 0.2 10^3/ul (0.0-0.5); HEMOGLOBIN 13.2 g/dl (12.0-16.0); LYMPHOCYTES # 2.2 10^3/ul (0.8-2.9); LYMPHOCYTES % 28.5 % (15.0-51.0); MEAN CORPUSCULAR HEMOGLOBIN 29.5 pg (29.0-33.0); MEAN CORPUSCULAR VOLUME 89.5 fl (82.0-101.0); MEAN PLATELET VOLUME 9.3 fl (7.4-10.4); MONOCYTE # 0.7 10^3/ul (0.3-0.9); NEUTROPHIL # 4.4 10^3/ul (1.6-7.5); NEUTROPHILS % 58.6 % (39.0-77.0); PLATELET COUNT 337 10^3/UL (140-415); RED BLOOD COUNT 4.47 10^6/ul (4.20-5.40); RED CELL DISTRIBUTION WIDTH 12.9 % (11.5-14.5)
[2018-05-31 19:48] LABS: WHITE BLOOD COUNT 7.6 10^3/ul (4.8-10.8)
[2018-05-31 20:07] LABS: ALANINE AMINOTRANSFERASE 22 IU/L (13-69); ALBUMIN/GLOBULIN RATIO 1.21; ALKALINE PHOSPHATASE 117 IU/L (42-121); ANION GAP 12 (5-13); ASPARTATE AMINO TRANSFERASE 20 IU/L (15-46); BILIRUBIN,INDIRECT 0.5 mg/dl (0-1.1); BILIRUBIN,TOTAL 0.5 mg/dl (0.2-1.3); BLOOD UREA NITROGEN 29 mg/dl (7-20); CALCIUM 11.4 mg/dl (8.4-10.2); CARBON DIOXIDE 25 mmol/L (21-31); CHLORIDE 99 mmol/L (97-110); CREATININE 0.72 mg/dl (0.44-1.00); Estimated GFR > 60 mL/min (>60); GLUCOSE 390 mg/dl (70-220); LIPASE 36 U/L (23-300); POTASSIUM 4.7 mmol/L (3.5-5.1); SODIUM 136 mmol/L (135-144); TOTAL PROTEIN 7.3 g/dl (6.1-8.1)
[2018-05-31 20:17] LABS: TROPONIN-I < 0.012 ng/ml (0.000-0.120)
[2018-05-31] MEDS: KETOROLAC 15 MG INJ IV (20:21)
[2018-05-31 20:33] LABS: INR 0.92; PROTIME 12.5 Sec (11.9-14.9)
[2018-05-31 21:15] LABS: ADD UMIC NO; UR ASCORBIC ACID NEGATIVE (NEGATIVE); UR BILIRUBIN (Dip) NEGATIVE (NEGATIVE); UR BLOOD (Dip) NEGATIVE (NEGATIVE); UR CLARITY CLEAR (CLEAR); UR COLOR STRAW (YELLOW); UR GLUCOSE (Dip) 3+ mg/dL (NEGATIVE); UR KETONES (Dip) NEGATIVE (NEGATIVE); UR LEUKOCYTE ESTERASE (Dip) NEGATIVE Leu/ul (NEGATIVE); UR NITRITE (Dip) NEGATIVE (NEGATIVE); UR SPECIFIC GRAVITY (Dip) 1.021 (1.003-1.030); UR TOTAL PROTEIN (Dip) NEGATIVE (NEGATIVE); UR UROBILINOGEN (Dip) NEGATIVE (NEGATIVE)
[2018-05-31] MEDS: HYDROmorphONE 2 MG/ML SYG IV (22:02)
[2018-05-31] MEDS: PANTOPRAZOLE 40 MG INJ IV (22:02)
[2018-05-31] MEDS ORDERED: DOCUSATE SODIUM 100 MG CAP PO (23:00)
[2018-05-31] MEDS ORDERED: morphine 2 MG INJ IV (23:00)
[2018-05-31] MEDS ORDERED: ONDANSETRON 4 MG INJ IV (23:00)
[2018-05-31] MEDS ORDERED: NACL 0.9% 3 ML SYG IV (23:00)
[2018-06-01] MEDS: HYOSCYAMINE 0.125 MG TAB PO ×4 (01:18→22:00)
[2018-06-01] MEDS: SUCRALFATE (100 MG/ML) 10ML CUP GTB ×5 (01:18→20:48)
[2018-06-01] MEDS: LIDOCAINE/MYLANTA 40 ML BTL PO (01:19)
[2018-06-01] MEDS: HYDROmorphONE 0.5 MG/0.5 ML SYG IV ×3 (02:41→20:47)
[2018-06-01] MEDS ORDERED: GLUCOSE GEL 15 GRAM TUBE BUCCAL (03:30)
[2018-06-01] MEDS ORDERED: GLUCAGON 1 MG INJ IM (03:30)
[2018-06-01] MEDS ORDERED: GLUCOSE GEL 15 GRAM TUBE PO ×2 (03:30)
[2018-06-01] MEDS ORDERED: DEXTROSE 50% 50 ML SYRINGE IV ×2 (03:30)
[2018-06-01] MEDS: INSULIN ASPART [NOVOLOG] 3 ML PEN SC ×5 (03:42→20:54)
[2018-06-01 05:17] LABS: ADD MAN DIFF? NO
[2018-06-01 05:21] LABS: BASOPHILS % 0.5 % (0.0-2.0); EOSINOPHILS # 0.3 10^3/ul (0.0-0.5); EOSINOPHILS % 4.4 % (0.0-7.0); HEMATOCRIT 35.8 % (37.0-47.0); HEMOGLOBIN 11.7 g/dl (12.0-16.0); LYMPHOCYTES # 2.5 10^3/ul (0.8-2.9); LYMPHOCYTES % 38.1 % (15.0-51.0); MEAN CORPUSCULAR HEMOGLOBIN 29.5 pg (29.0-33.0); MEAN CORPUSCULAR HGB CONC 32.7 g/dl (32.0-37.0); MEAN CORPUSCULAR VOLUME 90.4 fl (82.0-101.0); MEAN PLATELET VOLUME 9.4 fl (7.4-10.4); MONOCYTE # 0.6 10^3/ul (0.3-0.9); MONOCYTES % 9.1 % (0.0-11.0); NEUTROPHIL # 3.2 10^3/ul (1.6-7.5); NEUTROPHILS % 47.6 % (39.0-77.0); PLATELET COUNT 279 10^3/UL (140-415); RED BLOOD COUNT 3.96 10^6/ul (4.20-5.40); RED CELL DISTRIBUTION WIDTH 12.7 % (11.5-14.5)
[2018-06-01 05:21] LABS: WHITE BLOOD COUNT 6.6 10^3/ul (4.8-10.8)
[2018-06-01 05:42] LABS: HEMOGLOBIN A1C 11.1 % (0-5.9)
[2018-06-01 05:54] LABS: ALANINE AMINOTRANSFERASE 17 IU/L (13-69); ALBUMIN 3.2 g/dl (3.3-4.9); ALBUMIN/GLOBULIN RATIO 1.14; ALKALINE PHOSPHATASE 75 IU/L (42-121); ANION GAP 9 (5-13); ASPARTATE AMINO TRANSFERASE 15 IU/L (15-46); BILIRUBIN,INDIRECT 0.6 mg/dl (0-1.1); BILIRUBIN,TOTAL 0.6 mg/dl (0.2-1.3); BLOOD UREA NITROGEN 28 mg/dl (7-20); CALCIUM 10.5 mg/dl (8.4-10.2); CARBON DIOXIDE 26 mmol/L (21-31); CHLORIDE 105 mmol/L (97-110); CREATININE 0.76 mg/dl (0.44-1.00); Estimated GFR > 60 mL/min (>60); GLUCOSE 229 mg/dl (70-220); MAGNESIUM 1.2 mg/dl (1.7-2.5); POTASSIUM 4.1 mmol/L (3.5-5.1); SODIUM 140 mmol/L (135-144)
[2018-06-01] MEDS: PANTOPRAZOLE 40 MG INJ IV ×2 (06:00→18:17)
[2018-06-01] MEDS: LISINOPRIL 5 MG TAB PO (08:40)
[2018-06-01] MEDS ORDERED: SENNA TAB PO (09:00)
[2018-06-01] MEDS: CITALOPRAM 20 MG TAB PO (09:08)
[2018-06-01] MEDS: MAGNESIUM SULFATE 3 GM in DEXTROSE 5% 100 ML IVPB (10:39)
[2018-06-01] MEDS: BISACODYL (EC) 5 MG TAB PO (11:52)
[2018-06-01] MEDS ORDERED: BELLADONNA PO (12:00)
[2018-06-01] MEDS ORDERED: PHENOBARBITAL PO (12:00)
[2018-06-01] MEDS: BELLADONNA/PHENOBARBITAL TAB PO (14:12)
[2018-06-01] MEDS: KETOROLAC 30 MG INJ IV (15:32)
[2018-06-01] MEDS: ATORVASTATIN 80 MG TAB PO (20:48)
[2018-06-01] MEDS: SENNA TAB PO (20:48)
[2018-06-01] MEDS: INSULIN GLARGINE [LANtus] 3 ML PEN SC (20:53)
[2018-06-02] MEDS: ZOLPIDEM 5 MG TAB PO (01:01)
[2018-06-02] MEDS: HYDROmorphONE 0.5 MG/0.5 ML SYG IV ×4 (01:02→22:07)
[2018-06-02] MEDS: ACCU-CHEK XX (03:00)
[2018-06-02] MEDS: PANTOPRAZOLE 40 MG INJ IV ×2 (06:20→18:33)
[2018-06-02] MEDS: HYOSCYAMINE 0.125 MG TAB PO ×3 (06:24→22:06)
[2018-06-02] MEDS: INSULIN ASPART [NOVOLOG] 3 ML PEN SC ×4 (08:10→21:00)
[2018-06-02] MEDS: CITALOPRAM 20 MG TAB PO (08:56)
[2018-06-02] MEDS: SENNA TAB PO ×2 (08:57→20:48)
[2018-06-02] MEDS: LISINOPRIL 5 MG TAB PO (08:57)
[2018-06-02] MEDS: SUCRALFATE (100 MG/ML) 10ML CUP GTB ×4 (08:58→20:44)
[2018-06-02] MEDS: POLYETHYLENE GLYCOL 17 GM PACKET PO (11:30)
[2018-06-02 16:08] LABS: ADD MAN DIFF? NO
[2018-06-02 16:11] LABS: BASOPHILS % 0.3 % (0.0-2.0); EOSINOPHILS # 0.2 10^3/ul (0.0-0.5); EOSINOPHILS % 3.4 % (0.0-7.0); HEMATOCRIT 38.6 % (37.0-47.0); HEMOGLOBIN 12.8 g/dl (12.0-16.0); LYMPHOCYTES # 1.7 10^3/ul (0.8-2.9); LYMPHOCYTES % 24.2 % (15.0-51.0); MEAN CORPUSCULAR HEMOGLOBIN 29.4 pg (29.0-33.0); MEAN CORPUSCULAR HGB CONC 33.2 g/dl (32.0-37.0); MEAN CORPUSCULAR VOLUME 88.5 fl (82.0-101.0); MEAN PLATELET VOLUME 9.5 fl (7.4-10.4); MONOCYTE # 0.5 10^3/ul (0.3-0.9); MONOCYTES % 6.9 % (0.0-11.0); NEUTROPHIL # 4.6 10^3/ul (1.6-7.5); NEUTROPHILS % 64.9 % (39.0-77.0); PLATELET COUNT 301 10^3/UL (140-415); RED BLOOD COUNT 4.36 10^6/ul (4.20-5.40); RED CELL DISTRIBUTION WIDTH 12.9 % (11.5-14.5)
[2018-06-02 16:11] LABS: WHITE BLOOD COUNT 7.1 10^3/ul (4.8-10.8)
[2018-06-02 17:18] LABS: ALANINE AMINOTRANSFERASE 26 IU/L (13-69); ALBUMIN 3.6 g/dl (3.3-4.9); ALBUMIN/GLOBULIN RATIO 1.24; ALKALINE PHOSPHATASE 72 IU/L (42-121); ANION GAP 9 (5-13); ASPARTATE AMINO TRANSFERASE 19 IU/L (15-46); BILIRUBIN,INDIRECT 0.6 mg/dl (0-1.1); BILIRUBIN,TOTAL 0.6 mg/dl (0.2-1.3); BLOOD UREA NITROGEN 19 mg/dl (7-20); CALCIUM 10.5 mg/dl (8.4-10.2); CARBON DIOXIDE 28 mmol/L (21-31); CHLORIDE 103 mmol/L (97-110); CREATININE 0.67 mg/dl (0.44-1.00); Estimated GFR > 60 mL/min (>60); GLUCOSE 221 mg/dl (70-220); POTASSIUM 4.8 mmol/L (3.5-5.1); SODIUM 140 mmol/L (135-144); TOTAL PROTEIN 6.5 g/dl (6.1-8.1)
[2018-06-02] MEDS: HYDROmorphONE 2 MG TAB PO ×2 (17:26→20:45)
[2018-06-02] MEDS: ATORVASTATIN 80 MG TAB PO (20:44)
[2018-06-02] MEDS: INSULIN GLARGINE [LANtus] 3 ML PEN SC (21:38)
[2018-06-02] MEDS ORDERED: HYDROmorphONE 0.5 MG/0.5 ML SYG IV (21:40)
[2018-06-03] MEDS: HYDROmorphONE 2 MG TAB PO ×2 (00:43→05:02)
[2018-06-03] MEDS: ACCU-CHEK XX (02:00)
[2018-06-03] MEDS: ACETAMINOPHEN 325 MG TAB PO (03:31)
[2018-06-03] MEDS: PANTOPRAZOLE 40 MG INJ IV ×2 (05:04→18:12)
[2018-06-03] MEDS: HYOSCYAMINE 0.125 MG TAB PO ×3 (05:04→21:50)
[2018-06-03] MEDS: INSULIN ASPART [NOVOLOG] 3 ML PEN SC ×4 (08:00→21:00)
[2018-06-03] MEDS: POLYETHYLENE GLYCOL 17 GM PACKET PO (08:25)
[2018-06-03] MEDS: CITALOPRAM 20 MG TAB PO (08:25)
[2018-06-03] MEDS: SENNA TAB PO ×2 (08:25→21:50)
[2018-06-03] MEDS: SUCRALFATE (100 MG/ML) 10ML CUP GTB ×4 (08:25→21:51)
[2018-06-03] MEDS: LISINOPRIL 5 MG TAB PO (08:25)
[2018-06-03] MEDS ORDERED: HYDROCODONE/APAP (5/325) TAB PO ×2 (09:30→23:30)
[2018-06-03] MEDS: KETOROLAC 15 MG INJ IV ×2 (10:11→22:17)
[2018-06-03] MEDS ORDERED: FENTAnyl 50 MCG/ML VIAL (15:52)
[2018-06-03] MEDS: LIDOCAINE 2% (SDV) 5 ML INJ (15:56)
[2018-06-03] MEDS: PROPOFOL 60 ML (15:56)
[2018-06-03] MEDS ORDERED: DIPHENHYDRAMINE 50 MG INJ IV (16:00)
[2018-06-03] MEDS: FENTAnyl 50 MCG/ML VIAL IV ×3 (16:10→18:13)
[2018-06-03] MEDS: ONDANSETRON 4 MG INJ IV (16:10)
[2018-06-03] MEDS: HYDROCODONE/APAP (5/325) TAB PO (17:10)
[2018-06-03] MEDS: ATORVASTATIN 80 MG TAB PO (21:50)
[2018-06-03] MEDS: INSULIN GLARGINE [LANtus] 3 ML PEN SC (21:51)
== END 2018-06-04 00:10 | disposition left against medical advice (07) | DRG 384 ==
LOC: E/R 14:19 → 2NE 22:29
PROC: 0DB68ZX Excision of Stomach, Via Natural or Artificial Opening Endoscopic, Diagnostic (ICD-10-PCS; principal; 2018-06-03 14:30)
DX: K26.9 Duodenal ulcer, unspecified as acute or chronic, without hemorrhage or perforation (principal); R71.0 Precipitous drop in hematocrit; K25.9 Gastric ulcer, unspecified as acute or chronic, without hemorrhage or perforation; K29.70 Gastritis, unspecified, without bleeding; E11.65 Type 2 diabetes mellitus with hyperglycemia; E78.5 Hyperlipidemia, unspecified; I10 Essential (primary) hypertension; J45.909 Unspecified asthma, uncomplicated; E11.40 Type 2 diabetes mellitus with diabetic neuropathy, unspecified; Z90.49 Acquired absence of other specified parts of digestive tract
CPT/HCPCS: 36415; 71045; 74176; 80053; 81003; 82962; 83036; 83655; 83690; 83735; 83825; 84484; 85025; 85610; 85730; 86850; 86900; 86901; 88305; 93005; 96374; 99285-25

== ENCOUNTER 2018-06-22 05:44 | Inpatient (IN) | payer MEDICARE, OTHER ==
[2018-06-22 07:13] LABS: ABNORMAL IP MESSAGE 1; HEMOGLOBIN 11.7 g/dl (12.0-16.0); MEAN CORPUSCULAR HGB CONC 33.4 g/dl (32.0-37.0); MEAN CORPUSCULAR VOLUME 89.7 fl (82.0-101.0); MEAN PLATELET VOLUME 9.5 fl (7.4-10.4); PLATELET COUNT 357 10^3/UL (140-415); RED CELL DISTRIBUTION WIDTH 12.8 % (11.5-14.5)
[2018-06-22 07:13] LABS: WHITE BLOOD COUNT 22.8 10^3/ul (4.8-10.8)
[2018-06-22 07:14] LABS: ADD MAN DIFF? YES; POSITIVE DIFF @See below
[2018-06-22] MEDS: ASPIRIN 325 MG TAB PO (07:18)
[2018-06-22] MEDS: ONDANSETRON 4 MG INJ IV (07:18)
[2018-06-22] MEDS: HYDROmorphONE 1 MG/ML SYG IV ×3 (07:18→22:19)
[2018-06-22] MEDS: SOD CHLORIDE 0.9% 1,000 ML IV ×3 (07:19→22:45)
[2018-06-22 07:32] LABS: ALANINE AMINOTRANSFERASE 15 IU/L (13-69); ALBUMIN 2.9 g/dl (3.3-4.9); ALKALINE PHOSPHATASE 104 IU/L (42-121); ANION GAP 11 (5-13); ASPARTATE AMINO TRANSFERASE 13 IU/L (15-46); BILIRUBIN,INDIRECT 0.5 mg/dl (0-1.1); BILIRUBIN,TOTAL 0.5 mg/dl (0.2-1.3); BLOOD UREA NITROGEN 47 mg/dl (7-20); CALCIUM 9.8 mg/dl (8.4-10.2); CARBON DIOXIDE 22 mmol/L (21-31); CHLORIDE 97 mmol/L (97-110); CREATININE 1.03 mg/dl (0.44-1.00); Estimated GFR 53 mL/min (>60); GLUCOSE 327 mg/dl (70-220); INR 1.02; LIPASE 53 U/L (23-300); POTASSIUM 4.6 mmol/L (3.5-5.1); PROTIME 13.5 Sec (11.9-14.9); PT RATIO 1.1; SODIUM 130 mmol/L (135-144); TOTAL PROTEIN 5.8 g/dl (6.1-8.1)
[2018-06-22 07:33] LABS: PARTIAL THROMBOPLASTIN TIME 30.9 Sec (23.0-35.0)
[2018-06-22 07:36] LABS: CREATINE KINASE < 20 IU/L (23-200)
[2018-06-22 07:39] LABS: ANISOCYTOSIS 1+ (0-0); BAND NEUTROPHILS #M 7.2 10^3/ul (0.0-0.6); BAND NEUTROPHILS % (M) 32 % (0-4); BURR CELLS 1+ (0-0); GIANT THROMBO% (M) 1 % (0-0); LYMPHOCYTES #M 1.1 10^3/ul (0.8-2.9); LYMPHOCYTES % (M) 5 % (15-51); MICROCYTOSIS 1+ (0-0); MONOCYTE #M 1.5 10^3/ul (0.3-0.9); MONOCYTES % (M) 7 % (0-11); OVALOCYTES 1+ (0-0); PLATELET ESTIMATE NORMAL; POIKILOCYTOSIS 1+ (0-0); POLYCHROMASIA 1+ (0-0); REACTIVE LYMPHOCYTES #M 1.3 10^3/ul (0.0-0.0); REACTIVE LYMPHOCYTES% (M) 6 % (0-0); SEGMENTED NEUTROPHILS (M) % 50 % (39-77); SMUDGE%M 7 % (0-0)
[2018-06-22 07:44] LABS: B-TYPE NATRIURETIC PEPTIDE 337 PG/ML (0-125); CK-MB 0.93 ng/ml (0.0-2.4); TROPONIN-I 0.024 ng/ml (0.000-0.120)
[2018-06-22] MEDS: IOHEXOL 300MG/ML 150 ML BTL (08:15)
[2018-06-22] MEDS: SOD CHLORIDE 0.9% 100 ML (08:15)
[2018-06-22] MEDS ORDERED: NITROGLYCERIN (SL) 0.4 MG TAB SL (09:00)
[2018-06-22] MEDS ORDERED: ASPIRIN 325 MG TAB PO (09:00)
[2018-06-22 09:05] LABS: ADD UMIC YES; UR ASCORBIC ACID NEGATIVE (NEGATIVE); UR BILIRUBIN (Dip) NEGATIVE (NEGATIVE); UR BLOOD (Dip) NEGATIVE (NEGATIVE); UR CLARITY SLIGHTLY CLOUDY (CLEAR); UR COLOR YELLOW (YELLOW); UR GLUCOSE (Dip) 3+ mg/dL (NEGATIVE); UR KETONES (Dip) NEGATIVE (NEGATIVE); UR LEUKOCYTE ESTERASE (Dip) 3+ Leu/ul (NEGATIVE); UR MUCUS FEW /HPF (NONE SEEN); UR NITRITE (Dip) NEGATIVE (NEGATIVE); UR RBC 15 /HPF (0-5); UR SPECIFIC GRAVITY (Dip) 1.022 (1.003-1.030); UR TOTAL PROTEIN (Dip) NEGATIVE (NEGATIVE); UR UROBILINOGEN (Dip) NEGATIVE (NEGATIVE); UR WBC 33 /HPF (0-5)
[2018-06-22] MEDS ORDERED: ONDANSETRON 4 MG INJ IV (09:30)
[2018-06-22] MEDS ORDERED: ACETAMINOPHEN 325 MG TAB PO ×2 (09:30→13:00)
[2018-06-22] MEDS: BELLADONNA/PHENOBARBITAL TAB PO (09:56)
[2018-06-22] MEDS: SODIUM CHLORIDE 0.9% 1L BAG IV* (09:56)
[2018-06-22] MEDS: LIDOCAINE/MYLANTA 40 ML BTL PO (09:56)
[2018-06-22] MEDS: CEFTRIAXONE 1 GM/50 ML (PMX) 50 ML IVPB (09:58)
[2018-06-22] MEDS ORDERED: CEFTRIAXONE 1 GM/50 ML (PMX) 50 ML IVPB (13:00)
[2018-06-22] MEDS ORDERED: DOCUSATE SODIUM 100 MG CAP PO (13:00)
[2018-06-22] MEDS ORDERED: ZOLPIDEM 5 MG TAB PO (13:00)
[2018-06-22] MEDS ORDERED: morphine 2 MG INJ IV (13:00)
[2018-06-22] MEDS ORDERED: NACL 0.9% 3 ML SYG IV (13:00)
[2018-06-22] MEDS: GABAPENTIN 300 MG CAP PO ×2 (13:36→21:00)
[2018-06-22] MEDS: SUCRALFATE 1 GM TAB PO ×2 (13:56→21:19)
[2018-06-22] MEDS: SENNA TAB PO ×2 (13:56→21:18)
[2018-06-22] MEDS: DOCUSATE SODIUM 100 MG CAP PO ×2 (13:56→21:18)
[2018-06-22] MEDS ORDERED: GLUCAGON 1 MG INJ IM (14:00)
[2018-06-22] MEDS ORDERED: DEXTROSE 50% 50 ML SYRINGE IV ×2 (14:00)
[2018-06-22] MEDS ORDERED: GLUCOSE GEL 15 GRAM TUBE PO ×2 (14:00)
[2018-06-22] MEDS ORDERED: GLUCOSE GEL 15 GRAM TUBE BUCCAL (14:00)
[2018-06-22] MEDS: INSULIN ASPART [NOVOLOG] 3 ML PEN SC ×3 (14:02→21:00)
[2018-06-22] MEDS: METOCLOPRAMIDE 10 MG INJ IV (14:58)
[2018-06-22] MEDS: HYDROCODONE/APAP (5/325) TAB PO (16:49)
[2018-06-22] MEDS ORDERED: glipiZIDE 5 MG TAB PO (17:05)
[2018-06-22] MEDS ORDERED: GLIMEPIRIDE 2 MG TAB PO (17:35)
[2018-06-22] MEDS ORDERED: INSULIN GLARGINE [LANtus] 3 ML PEN SC (21:00)
[2018-06-22] MEDS: ATORVASTATIN 80 MG TAB PO (21:18)
[2018-06-22] MEDS: PAROXETINE 20 MG TAB PO (21:19)
[2018-06-22] MEDS: traZODone 100 MG TAB PO (21:19)
[2018-06-22] MEDS: INSULIN GLARGINE [LANTus] (100 UNITS/ML) SYG SC (23:02)
[2018-06-23] MEDS: INSULIN GLARGINE [LANTus] (100 UNITS/ML) SYG SC ×2 (00:26→21:00)
[2018-06-23] MEDS: ACCU-CHEK XX (02:12)
[2018-06-23] MEDS: HYDROmorphONE 1 MG/ML SYG IV ×4 (02:32→14:54)
[2018-06-23] MEDS ORDERED: PANTOPRAZOLE 40 MG INJ IV (06:00)
[2018-06-23] MEDS: SUCRALFATE 1 GM TAB PO ×3 (06:20→21:19)
[2018-06-23] MEDS: PANTOPRAZOLE (EC) 40 MG TAB PO ×2 (06:26→21:19)
[2018-06-23 06:31] LABS: ABNORMAL IP MESSAGE 1; HEMATOCRIT 27.4 % (37.0-47.0); HEMOGLOBIN 8.9 g/dl (12.0-16.0); MEAN CORPUSCULAR HGB CONC 32.5 g/dl (32.0-37.0); MEAN CORPUSCULAR VOLUME 92.3 fl (82.0-101.0); MEAN PLATELET VOLUME 9.1 fl (7.4-10.4); PLATELET COUNT 296 10^3/UL (140-415); RED BLOOD COUNT 2.97 10^6/ul (4.20-5.40); RED CELL DISTRIBUTION WIDTH 13.2 % (11.5-14.5)
[2018-06-23 06:31] LABS: WHITE BLOOD COUNT 16.1 10^3/ul (4.8-10.8)
[2018-06-23 06:55] LABS: ADD MAN DIFF? YES; POSITIVE DIFF @See below
[2018-06-23 07:19] LABS: ANION GAP 4 (5-13); BLOOD UREA NITROGEN 28 mg/dl (7-20); CARBON DIOXIDE 20 mmol/L (21-31); CHLORIDE 111 mmol/L (97-110); CREATININE 0.71 mg/dl (0.44-1.00); Estimated GFR > 60 mL/min (>60); GLUCOSE 87 mg/dl (70-220); MAGNESIUM 1.8 mg/dl (1.7-2.5); PHOSPHORUS 2.8 mg/dl (2.5-4.9); POTASSIUM 4.3 mmol/L (3.5-5.1); SODIUM 135 mmol/L (135-144)
[2018-06-23] MEDS: INSULIN ASPART [NOVOLOG] 3 ML PEN SC ×4 (07:55→21:00)
[2018-06-23 08:14] LABS: ANISOCYTOSIS 1+ (0-0); BAND NEUTROPHILS #M 1.1 10^3/ul (0.0-0.6); BAND NEUTROPHILS % (M) 7 % (0-4); BURR CELLS 1+ (0-0); EOSINOPHILS % (M) 2 % (0-7); LYMPHOCYTES #M 1.6 10^3/ul (0.8-2.9); LYMPHOCYTES % (M) 10 % (15-51); MICROCYTOSIS 1+ (0-0); MONOCYTE #M 1.2 10^3/ul (0.3-0.9); MONOCYTES % (M) 8 % (0-11); OVALOCYTES 1+ (0-0); PLATELET ESTIMATE NORMAL; POLYCHROMASIA 1+ (0-0); REACTIVE LYMPHOCYTES #M 0.3 10^3/ul (0.0-0.0); REACTIVE LYMPHOCYTES% (M) 2 % (0-0); SEG NEUT #M 11.6 10^3/ul (1.6-7.5); SEGMENTED NEUTROPHILS (M) % 71 % (39-77); SMUDGE%M 5 % (0-0)
[2018-06-23] MEDS: SOD CHLORIDE 0.9% 1,000 ML IV ×2 (08:56→18:41)
[2018-06-23] MEDS: GABAPENTIN 300 MG CAP PO ×3 (09:00→21:18)
[2018-06-23] MEDS: HYDROCODONE/APAP (5/325) TAB PO ×2 (09:05→16:31)
[2018-06-23] MEDS: SENNA TAB PO ×2 (09:10→21:19)
[2018-06-23] MEDS: CEFTRIAXONE 1 GM/50 ML (PMX) 50 ML IVPB (09:10)
[2018-06-23] MEDS: LISINOPRIL 20 MG TAB PO (09:10)
[2018-06-23] MEDS: DOCUSATE SODIUM 100 MG CAP PO ×2 (09:10→21:18)
[2018-06-23] MEDS: ENOXAPARIN 40 MG/0.4 ML SYG SC (09:15)
[2018-06-23] MEDS ORDERED: ALTEPLASE (CATHFLO) 2 MG INJ CATHETER (17:00)
[2018-06-23] MEDS: ATORVASTATIN 80 MG TAB PO (21:19)
[2018-06-23] MEDS: PAROXETINE 20 MG TAB PO (21:19)
[2018-06-23] MEDS: traZODone 100 MG TAB PO (21:19)
[2018-06-24] MEDS: HYDROmorphONE 1 MG/ML SYG IV ×3 (00:26→08:37)
[2018-06-24] MEDS: ACCU-CHEK XX (02:00)
[2018-06-24] MEDS: SOD CHLORIDE 0.9% 1,000 ML IV (04:06)
[2018-06-24] MEDS: SUCRALFATE 1 GM TAB PO ×3 (06:05→21:25)
[2018-06-24 07:55] LABS: ADD MAN DIFF? NO
[2018-06-24] MEDS: INSULIN ASPART [NOVOLOG] 3 ML PEN SC ×4 (07:55→20:42)
[2018-06-24 08:01] LABS: WHITE BLOOD COUNT 10.7 10^3/ul (4.8-10.8)
[2018-06-24 08:01] LABS: BASOPHILS % 0.3 % (0.0-2.0); EOSINOPHILS # 0.3 10^3/ul (0.0-0.5); EOSINOPHILS % 3.1 % (0.0-7.0); HEMATOCRIT 27.8 % (37.0-47.0); HEMOGLOBIN 8.8 g/dl (12.0-16.0); LYMPHOCYTES # 1.8 10^3/ul (0.8-2.9); LYMPHOCYTES % 17.1 % (15.0-51.0); MEAN CORPUSCULAR HEMOGLOBIN 29.5 pg (29.0-33.0); MEAN CORPUSCULAR HGB CONC 31.7 g/dl (32.0-37.0); MEAN CORPUSCULAR VOLUME 93.3 fl (82.0-101.0); MEAN PLATELET VOLUME 9.3 fl (7.4-10.4); MONOCYTE # 1.2 10^3/ul (0.3-0.9); MONOCYTES % 10.8 % (0.0-11.0); NEUTROPHIL # 7.2 10^3/ul (1.6-7.5); NEUTROPHILS % 67.6 % (39.0-77.0); PLATELET COUNT 322 10^3/UL (140-415); RED BLOOD COUNT 2.98 10^6/ul (4.20-5.40); RED CELL DISTRIBUTION WIDTH 13.2 % (11.5-14.5)
[2018-06-24 08:31] LABS: ANION GAP 7 (5-13); BLOOD UREA NITROGEN 16 mg/dl (7-20); CALCIUM 9.6 mg/dl (8.4-10.2); CARBON DIOXIDE 22 mmol/L (21-31); CHLORIDE 108 mmol/L (97-110); CREATININE 0.57 mg/dl (0.44-1.00); Estimated GFR > 60 mL/min (>60); GLUCOSE 105 mg/dl (70-220); POTASSIUM 4.4 mmol/L (3.5-5.1); SODIUM 137 mmol/L (135-144)
[2018-06-24] MEDS: LISINOPRIL 20 MG TAB PO (08:35)
[2018-06-24] MEDS: PANTOPRAZOLE (EC) 40 MG TAB PO ×2 (08:35→20:48)
[2018-06-24] MEDS: SENNA TAB PO ×2 (08:35→20:48)
[2018-06-24] MEDS: GABAPENTIN 300 MG CAP PO ×3 (08:36→20:51)
[2018-06-24] MEDS: DOCUSATE SODIUM 100 MG CAP PO ×2 (08:36→20:48)
[2018-06-24] MEDS: CEFTRIAXONE 1 GM/50 ML (PMX) 50 ML IVPB (10:37)
[2018-06-24] MEDS: traMADol 50 MG TAB PO (12:52)
[2018-06-24] MEDS: ONDANSETRON 4 MG INJ IV (13:56)
[2018-06-24] MEDS: HYDROCODONE/APAP (10/325) TAB GTB ×2 (14:12→19:59)
[2018-06-24] MEDS: BISACODYL 10 MG SUPP PR (15:30)
[2018-06-24] MEDS: POLYETHYLENE GLYCOL 17 GM PACKET PO ×3 (15:30→20:47)
[2018-06-24] MEDS ORDERED: KETOROLAC 15 MG INJ IV (19:46)
[2018-06-24] MEDS: PAROXETINE 20 MG TAB PO (20:48)
[2018-06-24] MEDS: ATORVASTATIN 80 MG TAB PO (20:48)
[2018-06-24] MEDS: traZODone 100 MG TAB PO (20:48)
[2018-06-25] MEDS: HYDROCODONE/APAP (10/325) TAB GTB ×3 (00:06→12:28)
[2018-06-25] MEDS: SUCRALFATE 1 GM TAB PO (05:31)
[2018-06-25] MEDS: INSULIN ASPART [NOVOLOG] 3 ML PEN SC ×2 (08:03→11:51)
[2018-06-25] MEDS: POLYETHYLENE GLYCOL 17 GM PACKET PO (08:03)
[2018-06-25] MEDS: GABAPENTIN 300 MG CAP PO (08:04)
[2018-06-25] MEDS: SENNA TAB PO (08:04)
[2018-06-25] MEDS: DOCUSATE SODIUM 100 MG CAP PO (08:04)
[2018-06-25] MEDS: PANTOPRAZOLE (EC) 40 MG TAB PO (08:04)
[2018-06-25] MEDS: LISINOPRIL 20 MG TAB PO (08:05)
[2018-06-25] MEDS: HYDROmorphONE 1 MG/ML SYG IV (09:11)
[2018-06-25] MEDS: CEFTRIAXONE 1 GM/50 ML (PMX) 50 ML IVPB (10:10)
== END 2018-06-25 14:05 | disposition home or self-care (01) | DRG 392 ==
LOC: PP2 06-25 02:32 → E/R 05:44 → MS3 09:31 → TEL 15:37
DX: K59.03 Drug induced constipation (principal); N39.0 Urinary tract infection, site not specified; E11.43 Type 2 diabetes mellitus with diabetic autonomic (poly)neuropathy; K31.84 Gastroparesis; F32.9 Major depressive disorder, single episode, unspecified; I11.0 Hypertensive heart disease with heart failure; I50.9 Heart failure, unspecified; K26.9 Duodenal ulcer, unspecified as acute or chronic, without hemorrhage or perforation; E66.01 Morbid (severe) obesity due to excess calories; Z68.36 Body mass index [BMI] 36.0-36.9, adult; E11.65 Type 2 diabetes mellitus with hyperglycemia; Z87.11 Personal history of peptic ulcer disease; Z76.5 Malingerer [conscious simulation]; T40.605A Adverse effect of unspecified narcotics, initial encounter
CPT/HCPCS: 71045; 71260; 74177; 80048; 80053; 81001; 82550; 82553; 82962; 83690; 83735; 83880; 84100; 84484; 85025; 85610; 85730; 86850; 86900; 86901; 87040-91; 87086; 93005; 96361; 96374; 96375; 99285-25

== ENCOUNTER 2018-07-01 20:50 | Inpatient (IN) | payer MEDICARE, OTHER ==
[2018-07-01] MEDS: SOD CHLORIDE 0.9% 1,000 ML IV (21:13)
[2018-07-01 21:22] LABS: ADD MAN DIFF? NO
[2018-07-01 21:24] LABS: WHITE BLOOD COUNT 22.3 10^3/ul (4.8-10.8)
[2018-07-01 21:24] LABS: BASOPHIL # 0.1 10^3/ul (0.0-0.1); BASOPHILS % 0.3 % (0.0-2.0); HEMATOCRIT 32.6 % (37.0-47.0); HEMOGLOBIN 10.5 g/dl (12.0-16.0); LYMPHOCYTES % 4.6 % (15.0-51.0); MEAN CORPUSCULAR HEMOGLOBIN 29.2 pg (29.0-33.0); MEAN CORPUSCULAR HGB CONC 32.2 g/dl (32.0-37.0); MEAN CORPUSCULAR VOLUME 90.6 fl (82.0-101.0); MEAN PLATELET VOLUME 8.9 fl (7.4-10.4); MONOCYTE # 1.3 10^3/ul (0.3-0.9); MONOCYTES % 5.7 % (0.0-11.0); NEUTROPHIL # 19.6 10^3/ul (1.6-7.5); NEUTROPHILS % 88.1 % (39.0-77.0); PLATELET COUNT 576 10^3/UL (140-415); RED CELL DISTRIBUTION WIDTH 12.8 % (11.5-14.5)
[2018-07-01 21:42] LABS: ALANINE AMINOTRANSFERASE 20 IU/L (13-69); ALBUMIN 3.1 g/dl (3.3-4.9); ALKALINE PHOSPHATASE 201 IU/L (42-121); ANION GAP 14 (5-13); ASPARTATE AMINO TRANSFERASE 14 IU/L (15-46); BLOOD UREA NITROGEN 45 mg/dl (7-20); CALCIUM 9.7 mg/dl (8.4-10.2); CARBON DIOXIDE 21 mmol/L (21-31); CHLORIDE 94 mmol/L (97-110); CREATININE 1.49 mg/dl (0.44-1.00); Estimated GFR 35 mL/min (>60); LIPASE 160 U/L (23-300); POTASSIUM 4.7 mmol/L (3.5-5.1); SODIUM 129 mmol/L (135-144); TOTAL PROTEIN 5.9 g/dl (6.1-8.1)
[2018-07-01 21:47] LABS: GLUCOSE 623 mg/dl (70-220)
[2018-07-01 21:53] LABS: TROPONIN-I < 0.012 ng/ml (0.000-0.120)
[2018-07-01 22:09] LABS: ADD UMIC NO; UR ASCORBIC ACID NEGATIVE (NEGATIVE); UR BACTERIA FEW /HPF (NONE SEEN); UR BILIRUBIN (Dip) NEGATIVE (NEGATIVE); UR BLOOD (Dip) NEGATIVE (NEGATIVE); UR CLARITY SLIGHTLY CLOUDY (CLEAR); UR COLOR YELLOW (YELLOW); UR GLUCOSE (Dip) 3+ mg/dL (NEGATIVE); UR KETONES (Dip) NEGATIVE (NEGATIVE); UR LEUKOCYTE ESTERASE (Dip) NEGATIVE Leu/ul (NEGATIVE); UR MUCUS FEW /HPF (NONE SEEN); UR NITRITE (Dip) NEGATIVE (NEGATIVE); UR RBC 6 /HPF (0-5); UR SPECIFIC GRAVITY (Dip) 1.026 (1.003-1.030); UR SQUAMOUS EPITHELIAL CELL FEW /HPF (FEW); UR TOTAL PROTEIN (Dip) NEGATIVE (NEGATIVE); UR UROBILINOGEN (Dip) NEGATIVE (NEGATIVE); UR WBC 1 /HPF (0-5)
[2018-07-01] MEDS: INSULIN REGULAR, HUMAN 100 UNIT/1 ML 3ML VIAL SC (23:35)
[2018-07-02] MEDS ORDERED: ONDANSETRON 4 MG INJ IV (00:30)
[2018-07-02] MEDS ORDERED: NACL 0.9% 3 ML SYG IV (00:30)
[2018-07-02] MEDS ORDERED: ALBUTEROL/IPRATROPIUM (NEB) 3 ML AMP HHN (00:30)
[2018-07-02] MEDS: INSULIN ASPART [NOVOLOG] 3 ML PEN SC ×4 (01:00→09:08)
[2018-07-02] MEDS: INSULIN GLARGINE [LANTus] (100 UNITS/ML) SYG SC ×4 (01:31→12:30)
[2018-07-02] MEDS: SOD CHLORIDE 0.9% 1,000 ML IV ×4 (01:32→16:26)
[2018-07-02] MEDS: SOD CHLORIDE 0.9% 500 ML IV (01:56)
[2018-07-02] MEDS: ACCU-CHEK XX (02:00)
[2018-07-02] MEDS ORDERED: GLUCAGON 1 MG INJ IM (02:00)
[2018-07-02] MEDS ORDERED: GLUCOSE GEL 15 GRAM TUBE BUCCAL (02:00)
[2018-07-02] MEDS ORDERED: DEXTROSE 50% 50 ML SYRINGE IV ×2 (02:00)
[2018-07-02] MEDS ORDERED: GLUCOSE GEL 15 GRAM TUBE PO ×2 (02:00)
[2018-07-02 02:16] LABS: CREATINE KINASE 21 IU/L (23-200)
[2018-07-02 02:29] LABS: CK INDEX 7.9; CK-MB 1.65 ng/ml (0.0-2.4); TROPONIN-I < 0.012 ng/ml (0.000-0.120)
[2018-07-02] MEDS ORDERED: morphine 4 MG/ML VIAL IV (04:30)
[2018-07-02] MEDS: NITROGLYCERIN (SL) 0.4 MG TAB SL ×3 (04:37→04:53)
[2018-07-02] MEDS: HYDROmorphONE 1 MG/ML SYG IV (05:04)
[2018-07-02 07:02] LABS: ABNORMAL IP MESSAGE 1; HEMATOCRIT 31.1 % (37.0-47.0); HEMOGLOBIN 9.9 g/dl (12.0-16.0); MEAN CORPUSCULAR HEMOGLOBIN 29.3 pg (29.0-33.0); MEAN CORPUSCULAR HGB CONC 31.8 g/dl (32.0-37.0); PLATELET COUNT 443 10^3/UL (140-415); RED BLOOD COUNT 3.38 10^6/ul (4.20-5.40); RED CELL DISTRIBUTION WIDTH 13.2 % (11.5-14.5)
[2018-07-02 07:02] LABS: WHITE BLOOD COUNT 14.1 10^3/ul (4.8-10.8)
[2018-07-02] MEDS: PANTOPRAZOLE (EC) 40 MG TAB PO (07:02)
[2018-07-02 07:08] LABS: POSITIVE DIFF @See below
[2018-07-02 07:09] LABS: ADD MAN DIFF? YES
[2018-07-02 07:41] LABS: CREATINE KINASE < 20 IU/L (23-200)
[2018-07-02 07:42] LABS: CK-MB 1.31 ng/ml (0.0-2.4); TROPONIN-I < 0.012 ng/ml (0.000-0.120)
[2018-07-02 07:51] LABS: ALANINE AMINOTRANSFERASE 19 IU/L (13-69); ALBUMIN 2.7 g/dl (3.3-4.9); ALBUMIN/GLOBULIN RATIO 1.03; ALKALINE PHOSPHATASE 166 IU/L (42-121); ANION GAP 11 (5-13); ASPARTATE AMINO TRANSFERASE 15 IU/L (15-46); BILIRUBIN,INDIRECT 0.1 mg/dl (0-1.1); BILIRUBIN,TOTAL 0.1 mg/dl (0.2-1.3); BLOOD UREA NITROGEN 41 mg/dl (7-20); CALCIUM 9.6 mg/dl (8.4-10.2); CARBON DIOXIDE 21 mmol/L (21-31); CHLORIDE 101 mmol/L (97-110); CREATININE 1.42 mg/dl (0.44-1.00); Estimated GFR 37 mL/min (>60); MAGNESIUM 1.7 mg/dl (1.7-2.5); PHOSPHORUS 4.4 mg/dl (2.5-4.9); POTASSIUM 4.7 mmol/L (3.5-5.1); SODIUM 133 mmol/L (135-144); TOTAL PROTEIN 5.3 g/dl (6.1-8.1)
[2018-07-02 08:05] LABS: GLUCOSE 502 mg/dl (70-220)
[2018-07-02] MEDS: LINAGLIPTIN 5 MG TABLET PO (08:25)
[2018-07-02] MEDS: LISINOPRIL 20 MG TAB PO (08:25)
[2018-07-02] MEDS: GABAPENTIN 300 MG CAP PO ×3 (08:25→20:18)
[2018-07-02] MEDS: CEFTRIAXONE 1 GM/50 ML (PMX) 50 ML IVPB (08:26)
[2018-07-02] MEDS: HYDROCODONE/APAP (5/325) TAB PO ×2 (08:32→21:19)
[2018-07-02] MEDS: HEPARIN 5,000 UNIT/1 ML VIAL SC ×2 (08:37→20:24)
[2018-07-02 09:58] LABS: ANISOCYTOSIS 1+ (0-0); BAND NEUTROPHILS % (M) 29 % (0-4); ECHINOCYTOSIS 1+ (0-0); EOSINOPHILS % (M) 1 % (0-7); LYMPHOCYTES #M 0.8 10^3/ul (0.8-2.9); LYMPHOCYTES % (M) 6 % (15-51); MICROCYTOSIS 1+ (0-0); MONOCYTE #M 0.5 10^3/ul (0.3-0.9); MONOCYTES % (M) 4 % (0-11); OVALOCYTES 1+ (0-0); PLATELET ESTIMATE NORMAL; POIKILOCYTOSIS 1+ (0-0); POLYCHROMASIA 2+ (0-0); REACTIVE LYMPHOCYTES #M 0.2 10^3/ul (0.0-0.0); REACTIVE LYMPHOCYTES% (M) 2 % (0-0); SEG NEUT #M 8.7 10^3/ul (1.6-7.5); SEGMENTED NEUTROPHILS (M) % 58 % (39-77); SMUDGE%M 6 % (0-0)
[2018-07-02] MEDS: LIDOCAINE 5% PATCH TD (16:17)
[2018-07-02] MEDS: DULOXETINE 30 MG CAP DR PO (16:17)
[2018-07-02] MEDS: MAGNESIUM SULFATE 2 GM/50 ML 50 ML IVPB (16:36)
[2018-07-02] MEDS ORDERED: INSULIN ASPART [NOVOLOG] 3 ML PEN SC (17:25)
[2018-07-02] MEDS: Insulin NOVOLOG SS MODERATE Algorithm (SS with meals and bedtime) SC ×2 (17:55→20:17)
[2018-07-02] MEDS: traZODone 100 MG TAB PO (20:18)
[2018-07-02] MEDS: ATORVASTATIN 80 MG TAB PO (20:18)
[2018-07-02] MEDS ORDERED: PAROXETINE 20 MG TAB PO (21:00)
[2018-07-03] MEDS ORDERED: MIDODRINE 5 MG TAB PO (01:30)
[2018-07-03] MEDS: SOD CHLORIDE 0.9% 1,000 ML IV ×3 (01:36→16:26)
[2018-07-03] MEDS: MIDODRINE 5 MG TAB PO ×4 (01:37→20:32)
[2018-07-03] MEDS: ACCU-CHEK XX (01:40)
[2018-07-03] MEDS: PANTOPRAZOLE (EC) 40 MG TAB PO (06:12)
[2018-07-03 07:33] LABS: WHITE BLOOD COUNT 12.2 10^3/ul (4.8-10.8)
[2018-07-03 07:33] LABS: ABNORMAL IP MESSAGE 1; HEMATOCRIT 30.5 % (37.0-47.0); HEMOGLOBIN 9.4 g/dl (12.0-16.0); MEAN CORPUSCULAR HEMOGLOBIN 28.5 pg (29.0-33.0); MEAN CORPUSCULAR HGB CONC 30.8 g/dl (32.0-37.0); MEAN CORPUSCULAR VOLUME 92.4 fl (82.0-101.0); MEAN PLATELET VOLUME 9.3 fl (7.4-10.4); NUCLEATED RED BLOOD CELLS% 0.2 /100WBC (0.0-0.0); PLATELET COUNT 399 10^3/UL (140-415); RED CELL DISTRIBUTION WIDTH 13.2 % (11.5-14.5)
[2018-07-03 07:38] LABS: ADD MAN DIFF? YES; POSITIVE DIFF @See below
[2018-07-03] MEDS: Insulin NOVOLOG SS MODERATE Algorithm (SS with meals and bedtime) SC ×4 (07:44→20:39)
[2018-07-03 08:01] LABS: BLOOD UREA NITROGEN 36 mg/dl (7-20); CALCIUM 8.9 mg/dl (8.4-10.2); CARBON DIOXIDE 24 mmol/L (21-31); CHLORIDE 107 mmol/L (97-110); Estimated GFR > 60 mL/min (>60); MAGNESIUM 1.7 mg/dl (1.7-2.5); PHOSPHORUS 2.5 mg/dl (2.5-4.9)
[2018-07-03 08:02] LABS: ANION GAP 6 (5-13); GLUCOSE 99 mg/dl (70-220); POTASSIUM 4.4 mmol/L (3.5-5.1); SODIUM 137 mmol/L (135-144)
[2018-07-03] MEDS: LIDOCAINE 5% PATCH TD (09:00)
[2018-07-03] MEDS: LISINOPRIL 20 MG TAB PO (09:00)
[2018-07-03] MEDS: CEFTRIAXONE 1 GM/50 ML (PMX) 50 ML IVPB (09:04)
[2018-07-03] MEDS: GABAPENTIN 300 MG CAP PO ×3 (09:05→20:32)
[2018-07-03] MEDS: DULOXETINE 30 MG CAP DR PO (09:06)
[2018-07-03] MEDS: LINAGLIPTIN 5 MG TABLET PO (09:08)
[2018-07-03] MEDS: traMADol 50 MG TAB PO ×2 (09:09→17:05)
[2018-07-03] MEDS: HEPARIN 5,000 UNIT/1 ML VIAL SC ×2 (09:35→20:36)
[2018-07-03] MEDS: INSULIN GLARGINE [LANTus] (100 UNITS/ML) SYG SC (09:36)
[2018-07-03 10:03] LABS: ANISOCYTOSIS 1+ (0-0); BAND NEUTROPHILS #M 3.7 10^3/ul (0.0-0.6); BAND NEUTROPHILS % (M) 31 % (0-4); EOSINOPHILS % (M) 7 % (0-7); ERYTHROBLAST% (NRBC) (M) 3 % (0-0); LYMPHOCYTES #M 1.8 10^3/ul (0.8-2.9); LYMPHOCYTES % (M) 15 % (15-51); MICROCYTOSIS 1+ (0-0); MONOCYTE #M 0.7 10^3/ul (0.3-0.9); MONOCYTES % (M) 6 % (0-11); PLATELET ESTIMATE NORMAL; REACTIVE LYMPHOCYTES #M 0.1 10^3/ul (0.0-0.0); REACTIVE LYMPHOCYTES% (M) 1 % (0-0); SEG NEUT #M 5.3 10^3/ul (1.6-7.5); SEGMENTED NEUTROPHILS (M) % 40 % (39-77); SMUDGE%M 17 % (0-0)
[2018-07-03] MEDS: HYDROCODONE/APAP (5/325) TAB PO (19:32)
[2018-07-03] MEDS: ATORVASTATIN 80 MG TAB PO (20:31)
[2018-07-03] MEDS: traZODone 100 MG TAB PO (20:32)
[2018-07-04] MEDS: SOD CHLORIDE 0.9% 1,000 ML IV ×4 (01:47→19:28)
[2018-07-04] MEDS: ACCU-CHEK XX (01:47)
[2018-07-04] MEDS: PANTOPRAZOLE (EC) 40 MG TAB PO (05:40)
[2018-07-04] MEDS: ACETAMINOPHEN 325 MG TAB PO (05:40)
[2018-07-04] MEDS: Insulin NOVOLOG SS MODERATE Algorithm (SS with meals and bedtime) SC ×4 (07:55→20:28)
[2018-07-04] MEDS: DULOXETINE 30 MG CAP DR PO (07:59)
[2018-07-04] MEDS: CEFTRIAXONE 1 GM/50 ML (PMX) 50 ML IVPB (07:59)
[2018-07-04] MEDS: LINAGLIPTIN 5 MG TABLET PO (07:59)
[2018-07-04] MEDS: LIDOCAINE 5% PATCH TD (07:59)
[2018-07-04] MEDS: GABAPENTIN 300 MG CAP PO ×3 (08:00→20:23)
[2018-07-04] MEDS: LISINOPRIL 20 MG TAB PO (08:00)
[2018-07-04] MEDS: MIDODRINE 5 MG TAB PO ×3 (08:00→20:23)
[2018-07-04] MEDS: INSULIN GLARGINE [LANTus] (100 UNITS/ML) SYG SC (08:20)
[2018-07-04] MEDS: HEPARIN 5,000 UNIT/1 ML VIAL SC ×2 (08:20→20:26)
[2018-07-04] MEDS: CELECOXIB 200 MG CAP PO ×2 (10:00→20:23)
[2018-07-04] MEDS: traMADol 50 MG TAB PO (10:42)
[2018-07-04] MEDS: ATORVASTATIN 80 MG TAB PO (20:23)
[2018-07-04] MEDS: traZODone 100 MG TAB PO (20:23)
[2018-07-05] MEDS: ACCU-CHEK XX (02:00)
[2018-07-05] MEDS: SOD CHLORIDE 0.9% 1,000 ML IV (03:43)
[2018-07-05] MEDS: traMADol 50 MG TAB PO ×2 (03:55→12:16)
[2018-07-05] MEDS: PANTOPRAZOLE (EC) 40 MG TAB PO (06:37)
[2018-07-05] MEDS: Insulin NOVOLOG SS MODERATE Algorithm (SS with meals and bedtime) SC ×2 (07:50→11:40)
[2018-07-05] MEDS: GABAPENTIN 300 MG CAP PO ×2 (09:03→12:55)
[2018-07-05] MEDS: LIDOCAINE 5% PATCH TD (09:03)
[2018-07-05] MEDS: CELECOXIB 200 MG CAP PO (09:03)
[2018-07-05] MEDS: DULOXETINE 30 MG CAP DR PO (09:03)
[2018-07-05] MEDS: LINAGLIPTIN 5 MG TABLET PO (09:04)
[2018-07-05] MEDS: LISINOPRIL 20 MG TAB PO (09:04)
[2018-07-05] MEDS: CEFTRIAXONE 1 GM/50 ML (PMX) 50 ML IVPB (09:10)
[2018-07-05] MEDS: HEPARIN 5,000 UNIT/1 ML VIAL SC (09:10)
[2018-07-05] MEDS: MIDODRINE 5 MG TAB PO ×2 (10:15→14:34)
[2018-07-05] MEDS: INSULIN GLARGINE [LANTus] (100 UNITS/ML) SYG SC (10:18)
== END 2018-07-05 17:10 | DRG 556 ==
LOC: TEL 23:11 → MS1 07-05 03:17 → TEL 07-03 15:47 → E/R 20:50
PROVIDERS: Internal Medicine
DX: M79.7 Fibromyalgia (principal); E87.1 Hypo-osmolality and hyponatremia; F11.20 Opioid dependence, uncomplicated; E11.65 Type 2 diabetes mellitus with hyperglycemia; E66.01 Morbid (severe) obesity due to excess calories; G89.29 Other chronic pain; R07.9 Chest pain, unspecified; N28.9 Disorder of kidney and ureter, unspecified; R53.81 Other malaise; Z68.36 Body mass index [BMI] 36.0-36.9, adult; Z87.11 Personal history of peptic ulcer disease; Z79.84 Long term (current) use of oral hypoglycemic drugs
CPT/HCPCS: 36415; 71045; 80048; 80053; 81001; 81003; 82550; 82553; 82962; 83690; 83735; 84100; 84484; 85025; 87040-91; 87086; 93005; 97116; 97162; 97530; 99285-25

== ENCOUNTER 2018-08-21 14:24 | Inpatient (IN) | payer MEDICARE, OTHER ==
[2018-08-21 15:17] LABS: ADD MAN DIFF? NO
[2018-08-21 15:22] LABS: BASOPHIL # 0.1 10^3/ul (0.0-0.1); BASOPHILS % 0.5 % (0.0-2.0); EOSINOPHILS # 0.4 10^3/ul (0.0-0.5); EOSINOPHILS % 4.1 % (0.0-7.0); HEMATOCRIT 37.7 % (37.0-47.0); HEMOGLOBIN 12.6 g/dl (12.0-16.0); LYMPHOCYTES # 3.5 10^3/ul (0.8-2.9); MEAN CORPUSCULAR HEMOGLOBIN 28.7 pg (29.0-33.0); MEAN CORPUSCULAR HGB CONC 33.4 g/dl (32.0-37.0); MEAN CORPUSCULAR VOLUME 85.9 fl (82.0-101.0); MEAN PLATELET VOLUME 9.4 fl (7.4-10.4); MONOCYTE # 0.9 10^3/ul (0.3-0.9); MONOCYTES % 9.2 % (0.0-11.0); NEUTROPHIL # 4.6 10^3/ul (1.6-7.5); NEUTROPHILS % 48.9 % (39.0-77.0); PLATELET COUNT 299 10^3/UL (140-415); RED BLOOD COUNT 4.39 10^6/ul (4.20-5.40); RED CELL DISTRIBUTION WIDTH 11.8 % (11.5-14.5)
[2018-08-21 15:22] LABS: WHITE BLOOD COUNT 9.5 10^3/ul (4.8-10.8)
[2018-08-21 15:35] LABS: ADD UMIC NO; UR ASCORBIC ACID NEGATIVE (NEGATIVE); UR BILIRUBIN (Dip) NEGATIVE (NEGATIVE); UR BLOOD (Dip) NEGATIVE (NEGATIVE); UR CLARITY SLIGHTLY CLOUDY (CLEAR); UR COLOR YELLOW (YELLOW); UR GLUCOSE (Dip) 3+ mg/dL (NEGATIVE); UR KETONES (Dip) NEGATIVE (NEGATIVE); UR LEUKOCYTE ESTERASE (Dip) NEGATIVE Leu/ul (NEGATIVE); UR NITRITE (Dip) NEGATIVE (NEGATIVE); UR RBC 2 /HPF (0-5); UR SPECIFIC GRAVITY (Dip) 1.017 (1.003-1.030); UR SQUAMOUS EPITHELIAL CELL FEW /HPF (FEW); UR TOTAL PROTEIN (Dip) NEGATIVE (NEGATIVE); UR UROBILINOGEN (Dip) 1+ mg/dL (NEGATIVE); UR WBC 2 /HPF (0-5)
[2018-08-21] MEDS: HYDROmorphONE 0.5 MG/0.5 ML SYG IV ×2 (15:56→23:23)
[2018-08-21] MEDS: ONDANSETRON 4 MG INJ IV (15:56)
[2018-08-21] MEDS: SOD CHLORIDE 0.9% 1,000 ML IV ×2 (15:57→23:11)
[2018-08-21 16:02] LABS: ALANINE AMINOTRANSFERASE 8 IU/L (13-69); ALBUMIN 3.6 g/dl (3.3-4.9); ALBUMIN/GLOBULIN RATIO 1.09; ALKALINE PHOSPHATASE 113 IU/L (42-121); ANION GAP 10 (5-13); ASPARTATE AMINO TRANSFERASE 15 IU/L (15-46); BILIRUBIN,INDIRECT 0.4 mg/dl (0-1.1); BILIRUBIN,TOTAL 0.4 mg/dl (0.2-1.3); BLOOD UREA NITROGEN 45 mg/dl (7-20); CALCIUM 9.9 mg/dl (8.4-10.2); CARBON DIOXIDE 23 mmol/L (21-31); CHLORIDE 99 mmol/L (97-110); CREATININE 1.44 mg/dl (0.44-1.00); Estimated GFR 36 mL/min (>60); POTASSIUM 4.8 mmol/L (3.5-5.1); SODIUM 132 mmol/L (135-144); TOTAL PROTEIN 6.9 g/dl (6.1-8.1)
[2018-08-21 16:06] LABS: ETHANOL < 10.0 mg/dl (0-0); GLUCOSE 436 mg/dl (70-220)
[2018-08-21 16:13] LABS: AMPHETAMINE/METHAMPHETAMINE Negative (NEGATIVE); BARBITURATES Negative (NEGATIVE); CANNABINOIDS Negative (NEGATIVE); COCAINE Negative (NEGATIVE)
[2018-08-21 16:15] LABS: BENZODIAZEPINES Positive (NEGATIVE); OPIATES Positive (NEGATIVE)
[2018-08-21 16:23] LABS: TROPONIN-I < 0.012 ng/ml (0.000-0.120)
[2018-08-21 16:25] LABS: FREE THYROXINE INDEX (Calc) 3.26 ug/ml (0.65-3.89); T3 UPTAKE 35.8 % (23.5-40.5); T4 (THYROXINE) 9.1 ug/dl (5.5-11.0)
[2018-08-21] MEDS: ACCU-CHEK XX (18:03)
[2018-08-21] MEDS: INSULIN LISPRO 100 UNIT/ML VIAL SC (18:03)
[2018-08-21] MEDS ORDERED: ACETAMINOPHEN 325 MG TAB PO (19:30)
[2018-08-21] MEDS ORDERED: ONDANSETRON 4 MG INJ IV ×2 (19:30→21:00)
[2018-08-21] MEDS ORDERED: DOCUSATE SODIUM 100 MG CAP PO (21:00)
[2018-08-21] MEDS ORDERED: BISACODYL (EC) 5 MG TAB PO (21:00)
[2018-08-21] MEDS ORDERED: NACL 0.9% 3 ML SYG IV (21:00)
[2018-08-21] MEDS ORDERED: GLUCAGON 1 MG INJ IM (23:30)
[2018-08-21] MEDS ORDERED: GLUCOSE GEL 15 GRAM TUBE PO ×2 (23:30)
[2018-08-21] MEDS ORDERED: GLUCOSE GEL 15 GRAM TUBE BUCCAL (23:30)
[2018-08-21] MEDS ORDERED: DEXTROSE 50% 50 ML SYRINGE IV ×2 (23:30)
[2018-08-22] MEDS: INSULIN GLARGINE [LANTus] (100 UNITS/ML) SYG SC (00:10)
[2018-08-22] MEDS: ACETAMINOPHEN 325 MG TAB PO (01:57)
[2018-08-22] MEDS: INSULIN ASPART [NOVOLOG] 3 ML PEN SC ×3 (02:08→08:02)
[2018-08-22] MEDS: HYDROmorphONE 0.5 MG/0.5 ML SYG IV ×4 (05:24→23:14)
[2018-08-22 07:58] LABS: ADD MAN DIFF? NO
[2018-08-22] MEDS: DICYCLOMINE 10 MG CAP PO ×2 (08:11→09:10)
[2018-08-22 08:12] LABS: WHITE BLOOD COUNT 6.5 10^3/ul (4.8-10.8)
[2018-08-22 08:12] LABS: BASOPHILS % 0.5 % (0.0-2.0); EOSINOPHILS # 0.3 10^3/ul (0.0-0.5); EOSINOPHILS % 5.1 % (0.0-7.0); HEMATOCRIT 35.3 % (37.0-47.0); HEMOGLOBIN 11.5 g/dl (12.0-16.0); LYMPHOCYTES # 2.9 10^3/ul (0.8-2.9); LYMPHOCYTES % 45.3 % (15.0-51.0); MEAN CORPUSCULAR HEMOGLOBIN 28.3 pg (29.0-33.0); MEAN CORPUSCULAR HGB CONC 32.6 g/dl (32.0-37.0); MEAN CORPUSCULAR VOLUME 86.9 fl (82.0-101.0); MEAN PLATELET VOLUME 10.4 fl (7.4-10.4); MONOCYTE # 0.8 10^3/ul (0.3-0.9); MONOCYTES % 11.6 % (0.0-11.0); NEUTROPHIL # 2.4 10^3/ul (1.6-7.5); NEUTROPHILS % 37.3 % (39.0-77.0); PLATELET COUNT 338 10^3/UL (140-415); RED BLOOD COUNT 4.06 10^6/ul (4.20-5.40)
[2018-08-22 08:17] LABS: HEMOGLOBIN A1C 10.2 % (0-5.9)
[2018-08-22 08:21] LABS: ALANINE AMINOTRANSFERASE 14 IU/L (13-69); ALBUMIN/GLOBULIN RATIO 0.96; ALKALINE PHOSPHATASE 83 IU/L (42-121); ANION GAP 4 (5-13); ASPARTATE AMINO TRANSFERASE 15 IU/L (15-46); BILIRUBIN,INDIRECT 0.5 mg/dl (0-1.1); BILIRUBIN,TOTAL 0.5 mg/dl (0.2-1.3); BLOOD UREA NITROGEN 34 mg/dl (7-20); CALCIUM 9.7 mg/dl (8.4-10.2); CARBON DIOXIDE 28 mmol/L (21-31); CHLORIDE 106 mmol/L (97-110); CREATININE 0.85 mg/dl (0.44-1.00); Estimated GFR > 60 mL/min (>60); GLUCOSE 155 mg/dl (70-220); MAGNESIUM 1.3 mg/dl (1.7-2.5); POTASSIUM 4.5 mmol/L (3.5-5.1); SODIUM 138 mmol/L (135-144); TOTAL PROTEIN 6.1 g/dl (6.1-8.1)
[2018-08-22] MEDS: ENOXAPARIN 40 MG/0.4 ML SYG SC (09:09)
[2018-08-22] MEDS: LISINOPRIL 20 MG TAB PO (09:09)
[2018-08-22] MEDS: DICLOFENAC (EC) 75 MG TAB PO ×2 (09:09→22:29)
[2018-08-22] MEDS ORDERED: INSULIN ASPART [NOVOLOG] 3 ML PEN SC ×2 (12:00→17:25)
[2018-08-22] MEDS: Insulin NOVOLOG SS MILD Algorithm (SS with meals and bedtime) SC ×3 (12:28→22:36)
[2018-08-22] MEDS: MAGNESIUM SULFATE 3 GM in SOD CHLORIDE 0.9% 100 ML IVPB (12:55)
[2018-08-22] MEDS: ATORVASTATIN 80 MG TAB PO (22:29)
[2018-08-23] MEDS: HYDROmorphONE 0.5 MG/0.5 ML SYG IV ×5 (05:30→23:08)
[2018-08-23] MEDS: DICLOFENAC (EC) 75 MG TAB PO ×2 (08:11→20:33)
[2018-08-23] MEDS: DICYCLOMINE 10 MG CAP PO (08:11)
[2018-08-23] MEDS: LISINOPRIL 20 MG TAB PO (08:11)
[2018-08-23] MEDS: ACETAMINOPHEN 325 MG TAB PO (08:12)
[2018-08-23] MEDS: Insulin NOVOLOG SS MILD Algorithm (SS with meals and bedtime) SC ×4 (08:13→20:48)
[2018-08-23] MEDS: ENOXAPARIN 40 MG/0.4 ML SYG SC (08:14)
[2018-08-23] MEDS: DULOXETINE 30 MG CAP DR PO (17:19)
[2018-08-23] MEDS: INSULIN ASPART [NOVOLOG] 3 ML PEN SC ×2 (17:28→18:01)
[2018-08-23] MEDS: MAGNESIUM SULFATE 4 GM/100 ML 100 ML IVPB (17:55)
[2018-08-23] MEDS: ACCU-CHEK XX (20:00)
[2018-08-23] MEDS: traZODone 100 MG TAB PO (20:33)
[2018-08-23] MEDS: ATORVASTATIN 80 MG TAB PO (20:33)
[2018-08-23] MEDS: GABAPENTIN 300 MG CAP PO (20:36)
[2018-08-23] MEDS: INSULIN GLARGINE [LANTus] (100 UNITS/ML) SYG SC (20:49)
[2018-08-24] MEDS: ACCU-CHEK XX (02:12)
[2018-08-24] MEDS: ACETAMINOPHEN 325 MG TAB PO (02:17)
[2018-08-24] MEDS: HYDROmorphONE 0.5 MG/0.5 ML SYG IV ×3 (04:32→17:21)
[2018-08-24] MEDS: FUROSEMIDE 20 MG TAB PO (06:17)
[2018-08-24 06:57] LABS: ANION GAP 6 (5-13); BLOOD UREA NITROGEN 26 mg/dl (7-20); CALCIUM 10.5 mg/dl (8.4-10.2); CARBON DIOXIDE 26 mmol/L (21-31); CHLORIDE 106 mmol/L (97-110); CREATININE 1.05 mg/dl (0.44-1.00); Estimated GFR 52 mL/min (>60); GLUCOSE 252 mg/dl (70-220); MAGNESIUM 1.7 mg/dl (1.7-2.5); PHOSPHORUS 3.7 mg/dl (2.5-4.9); POTASSIUM 4.6 mmol/L (3.5-5.1); SODIUM 138 mmol/L (135-144)
[2018-08-24] MEDS: INSULIN ASPART [NOVOLOG] 3 ML PEN SC ×4 (08:03→17:21)
[2018-08-24] MEDS: Insulin NOVOLOG SS MILD Algorithm (SS with meals and bedtime) SC ×4 (08:03→20:59)
[2018-08-24] MEDS: ENOXAPARIN 40 MG/0.4 ML SYG SC (08:05)
[2018-08-24] MEDS: DULOXETINE 30 MG CAP DR PO (08:06)
[2018-08-24] MEDS: GABAPENTIN 300 MG CAP PO ×3 (08:06→20:37)
[2018-08-24] MEDS: PANTOPRAZOLE (EC) 40 MG TAB PO (08:06)
[2018-08-24] MEDS: DICYCLOMINE 10 MG CAP PO (08:06)
[2018-08-24] MEDS: DICLOFENAC (EC) 75 MG TAB PO ×2 (08:07→20:37)
[2018-08-24] MEDS: LISINOPRIL 20 MG TAB PO (08:07)
[2018-08-24] MEDS: ATORVASTATIN 80 MG TAB PO (20:37)
[2018-08-24] MEDS: INSULIN GLARGINE [LANTus] (100 UNITS/ML) SYG SC (21:00)
[2018-08-24] MEDS: traZODone 100 MG TAB PO (22:44)
[2018-08-25] MEDS: HYDROmorphONE 0.5 MG/0.5 ML SYG IV ×4 (00:15→18:35)
[2018-08-25] MEDS: ACCU-CHEK XX (02:36)
[2018-08-25] MEDS: FUROSEMIDE 20 MG TAB PO (06:30)
[2018-08-25] MEDS: PANTOPRAZOLE (EC) 40 MG TAB PO (06:31)
[2018-08-25] MEDS: Insulin NOVOLOG SS MILD Algorithm (SS with meals and bedtime) SC ×4 (07:25→20:52)
[2018-08-25] MEDS: DICYCLOMINE 10 MG CAP PO (08:18)
[2018-08-25] MEDS: DICLOFENAC (EC) 75 MG TAB PO ×2 (08:18→20:53)
[2018-08-25] MEDS: GABAPENTIN 300 MG CAP PO ×3 (08:19→20:55)
[2018-08-25] MEDS: LISINOPRIL 20 MG TAB PO (08:19)
[2018-08-25] MEDS: DULOXETINE 30 MG CAP DR PO (08:19)
[2018-08-25] MEDS: INSULIN ASPART [NOVOLOG] 3 ML PEN SC ×3 (08:23→17:51)
[2018-08-25] MEDS: ENOXAPARIN 40 MG/0.4 ML SYG SC (08:27)
[2018-08-25] MEDS: ACETAMINOPHEN 325 MG TAB PO (20:55)
[2018-08-25] MEDS: traZODone 100 MG TAB PO (20:55)
[2018-08-25] MEDS: INSULIN GLARGINE [LANTus] (100 UNITS/ML) SYG SC (20:56)
[2018-08-25] MEDS: ATORVASTATIN 80 MG TAB PO (20:56)
[2018-08-26] MEDS: HYDROmorphONE 0.5 MG/0.5 ML SYG IV ×4 (00:47→18:54)
[2018-08-26] MEDS: ACCU-CHEK XX (02:00)
[2018-08-26 05:56] LABS: ADD MAN DIFF? NO
[2018-08-26 06:00] LABS: BASOPHILS % 0.5 % (0.0-2.0); EOSINOPHILS # 0.3 10^3/ul (0.0-0.5); EOSINOPHILS % 4.1 % (0.0-7.0); HEMATOCRIT 35.7 % (37.0-47.0); HEMOGLOBIN 11.6 g/dl (12.0-16.0); LYMPHOCYTES # 3.4 10^3/ul (0.8-2.9); LYMPHOCYTES % 41.7 % (15.0-51.0); MEAN CORPUSCULAR HGB CONC 32.5 g/dl (32.0-37.0); MEAN CORPUSCULAR VOLUME 86.2 fl (82.0-101.0); MEAN PLATELET VOLUME 9.5 fl (7.4-10.4); MONOCYTE # 0.6 10^3/ul (0.3-0.9); NEUTROPHIL # 3.7 10^3/ul (1.6-7.5); NEUTROPHILS % 45.5 % (39.0-77.0); PLATELET COUNT 285 10^3/UL (140-415); RED BLOOD COUNT 4.14 10^6/ul (4.20-5.40)
[2018-08-26] MEDS: FUROSEMIDE 20 MG TAB PO (06:44)
[2018-08-26] MEDS: PANTOPRAZOLE (EC) 40 MG TAB PO (06:44)
[2018-08-26 06:45] LABS: ANION GAP 6 (5-13); BLOOD UREA NITROGEN 30 mg/dl (7-20); CALCIUM 10.1 mg/dl (8.4-10.2); CARBON DIOXIDE 27 mmol/L (21-31); CHLORIDE 107 mmol/L (97-110); CREATININE 0.98 mg/dl (0.44-1.00); Estimated GFR 57 mL/min (>60); GLUCOSE 168 mg/dl (70-220); POTASSIUM 4.2 mmol/L (3.5-5.1); SODIUM 140 mmol/L (135-144)
[2018-08-26] MEDS: INSULIN ASPART [NOVOLOG] 3 ML PEN SC ×3 (08:01→17:13)
[2018-08-26] MEDS: Insulin NOVOLOG SS MILD Algorithm (SS with meals and bedtime) SC ×4 (08:01→20:43)
[2018-08-26] MEDS: ENOXAPARIN 40 MG/0.4 ML SYG SC (08:02)
[2018-08-26] MEDS: DICLOFENAC (EC) 75 MG TAB PO ×2 (08:02→20:39)
[2018-08-26] MEDS: GABAPENTIN 300 MG CAP PO ×3 (08:02→20:39)
[2018-08-26] MEDS: LISINOPRIL 20 MG TAB PO (08:02)
[2018-08-26] MEDS: DULOXETINE 30 MG CAP DR PO (08:02)
[2018-08-26] MEDS: DICYCLOMINE 10 MG CAP PO (08:02)
[2018-08-26] MEDS: ATORVASTATIN 80 MG TAB PO (20:39)
[2018-08-26] MEDS: traZODone 100 MG TAB PO (20:39)
[2018-08-26] MEDS: INSULIN GLARGINE [LANTus] (100 UNITS/ML) SYG SC (20:42)
[2018-08-27] MEDS: HYDROmorphONE 0.5 MG/0.5 ML SYG IV ×4 (01:03→20:11)
[2018-08-27] MEDS: ACCU-CHEK XX (02:08)
[2018-08-27] MEDS: ACETAMINOPHEN 325 MG TAB PO (05:04)
[2018-08-27 06:01] LABS: ADD MAN DIFF? NO
[2018-08-27 06:03] LABS: BASOPHIL # 0.1 10^3/ul (0.0-0.1); BASOPHILS % 0.7 % (0.0-2.0); EOSINOPHILS # 0.3 10^3/ul (0.0-0.5); EOSINOPHILS % 3.7 % (0.0-7.0); HEMATOCRIT 38.9 % (37.0-47.0); HEMOGLOBIN 12.6 g/dl (12.0-16.0); LYMPHOCYTES # 3.5 10^3/ul (0.8-2.9); LYMPHOCYTES % 38.5 % (15.0-51.0); MEAN CORPUSCULAR HEMOGLOBIN 28.1 pg (29.0-33.0); MEAN CORPUSCULAR HGB CONC 32.4 g/dl (32.0-37.0); MEAN CORPUSCULAR VOLUME 86.8 fl (82.0-101.0); MEAN PLATELET VOLUME 9.5 fl (7.4-10.4); MONOCYTE # 0.6 10^3/ul (0.3-0.9); MONOCYTES % 6.9 % (0.0-11.0); NEUTROPHIL # 4.5 10^3/ul (1.6-7.5); PLATELET COUNT 274 10^3/UL (140-415); RED BLOOD COUNT 4.48 10^6/ul (4.20-5.40); RED CELL DISTRIBUTION WIDTH 11.9 % (11.5-14.5)
[2018-08-27] MEDS: FUROSEMIDE 20 MG TAB PO (06:05)
[2018-08-27 06:36] LABS: ANION GAP 7 (5-13); BLOOD UREA NITROGEN 33 mg/dl (7-20); CALCIUM 10.1 mg/dl (8.4-10.2); CARBON DIOXIDE 27 mmol/L (21-31); CHLORIDE 106 mmol/L (97-110); CREATININE 0.99 mg/dl (0.44-1.00); Estimated GFR 56 mL/min (>60); GLUCOSE 158 mg/dl (70-220); POTASSIUM 4.2 mmol/L (3.5-5.1); SODIUM 140 mmol/L (135-144)
[2018-08-27] MEDS: PANTOPRAZOLE (EC) 40 MG TAB PO (07:07)
[2018-08-27] MEDS: INSULIN ASPART [NOVOLOG] 3 ML PEN SC ×3 (07:55→17:14)
[2018-08-27] MEDS: Insulin NOVOLOG SS MILD Algorithm (SS with meals and bedtime) SC ×4 (07:56→20:35)
[2018-08-27] MEDS: DICLOFENAC (EC) 75 MG TAB PO ×2 (08:06→20:11)
[2018-08-27] MEDS: LISINOPRIL 20 MG TAB PO (08:06)
[2018-08-27] MEDS: GABAPENTIN 300 MG CAP PO ×3 (08:06→20:11)
[2018-08-27] MEDS: DICYCLOMINE 10 MG CAP PO (08:06)
[2018-08-27] MEDS: DULOXETINE 30 MG CAP DR PO (08:06)
[2018-08-27] MEDS: ENOXAPARIN 40 MG/0.4 ML SYG SC (08:07)
[2018-08-27] MEDS: traZODone 100 MG TAB PO (20:10)
[2018-08-27] MEDS: ATORVASTATIN 80 MG TAB PO (20:11)
[2018-08-27] MEDS: INSULIN GLARGINE [LANTus] (100 UNITS/ML) SYG SC (20:37)
[2018-08-28] MEDS: ACCU-CHEK XX (01:05)
[2018-08-28] MEDS: HYDROmorphONE 0.5 MG/0.5 ML SYG IV ×3 (02:11→13:59)
[2018-08-28] MEDS: PANTOPRAZOLE (EC) 40 MG TAB PO (06:43)
[2018-08-28] MEDS: FUROSEMIDE 20 MG TAB PO (06:46)
[2018-08-28] MEDS: DICLOFENAC (EC) 75 MG TAB PO (08:15)
[2018-08-28] MEDS: GABAPENTIN 300 MG CAP PO ×2 (08:15→11:55)
[2018-08-28] MEDS: DULOXETINE 30 MG CAP DR PO (08:15)
[2018-08-28] MEDS: ENOXAPARIN 40 MG/0.4 ML SYG SC (08:17)
[2018-08-28] MEDS: INSULIN ASPART [NOVOLOG] 3 ML PEN SC ×2 (08:18→12:19)
[2018-08-28] MEDS: Insulin NOVOLOG SS MILD Algorithm (SS with meals and bedtime) SC ×2 (08:18→12:19)
[2018-08-28] MEDS: LISINOPRIL 20 MG TAB PO (08:19)
[2018-08-28] MEDS: DICYCLOMINE 10 MG CAP PO (08:33)
[2018-08-28 10:01] LABS: ADD MAN DIFF? NO
[2018-08-28 10:04] LABS: WHITE BLOOD COUNT 6.8 10^3/ul (4.8-10.8)
[2018-08-28 10:04] LABS: BASOPHILS % 0.4 % (0.0-2.0); EOSINOPHILS # 0.3 10^3/ul (0.0-0.5); HEMOGLOBIN 12.1 g/dl (12.0-16.0); LYMPHOCYTES # 2.4 10^3/ul (0.8-2.9); LYMPHOCYTES % 34.8 % (15.0-51.0); MEAN CORPUSCULAR HEMOGLOBIN 28.3 pg (29.0-33.0); MEAN CORPUSCULAR HGB CONC 32.7 g/dl (32.0-37.0); MEAN CORPUSCULAR VOLUME 86.7 fl (82.0-101.0); MEAN PLATELET VOLUME 9.6 fl (7.4-10.4); MONOCYTE # 0.5 10^3/ul (0.3-0.9); MONOCYTES % 7.8 % (0.0-11.0); NEUTROPHIL # 3.5 10^3/ul (1.6-7.5); NEUTROPHILS % 51.9 % (39.0-77.0); PLATELET COUNT 292 10^3/UL (140-415); RED BLOOD COUNT 4.27 10^6/ul (4.20-5.40)
[2018-08-28 10:27] LABS: ANION GAP 8 (5-13); BLOOD UREA NITROGEN 35 mg/dl (7-20); CALCIUM 10.1 mg/dl (8.4-10.2); CARBON DIOXIDE 24 mmol/L (21-31); CHLORIDE 106 mmol/L (97-110); CREATININE 1.03 mg/dl (0.44-1.00); Estimated GFR 53 mL/min (>60); GLUCOSE 195 mg/dl (70-220); POTASSIUM 3.8 mmol/L (3.5-5.1); SODIUM 138 mmol/L (135-144)
[2018-08-28] MEDS: ACETAMINOPHEN 325 MG TAB PO (11:50)
== END 2018-08-28 16:55 | disposition home or self-care (01) | DRG 92 ==
LOC: E/R 14:24 → PP2 08-25 16:42 → TEL 19:24
PROVIDERS: Internal Medicine
DX: G89.29 Other chronic pain (principal); G93.40 Encephalopathy, unspecified; M79.7 Fibromyalgia; E11.65 Type 2 diabetes mellitus with hyperglycemia; I10 Essential (primary) hypertension; F32.9 Major depressive disorder, single episode, unspecified; K29.70 Gastritis, unspecified, without bleeding; E66.9 Obesity, unspecified; Z68.32 Body mass index [BMI] 32.0-32.9, adult; K21.9 Gastro-esophageal reflux disease without esophagitis; E78.5 Hyperlipidemia, unspecified; E11.40 Type 2 diabetes mellitus with diabetic neuropathy, unspecified; M79.605 Pain in left leg; M79.604 Pain in right leg
CPT/HCPCS: 70450; 70551; 71045; 73700; 80048; 80053; 80307; 81001; 81003; 82962; 83036; 83735; 84100; 84436; 84479; 84484; 85025; 92526; 92610; 93005; 93970; 96372; 96374; 96375; 97110; 97116; 97162; 97530; 99285-25; G0378

== ENCOUNTER 2018-09-04 10:51 | Emergency (ER) | payer OTHER, MEDICARE ==
[2018-09-04] MEDS: HYDROCODONE/APAP (5/325) TAB PO (12:08)
== END 2018-09-04 13:10 | disposition home or self-care (01) ==
LOC: FTE 10:51
DX: M79.652 Pain in left thigh (principal); M79.651 Pain in right thigh; I11.0 Hypertensive heart disease with heart failure; I50.9 Heart failure, unspecified; Z79.4 Long term (current) use of insulin
CPT/HCPCS: 99283

== ENCOUNTER 2018-09-10 13:55 | Emergency (ER) | payer OTHER, MEDICARE ==
[2018-09-10 15:43] LABS: ADD MAN DIFF? NO
[2018-09-10 15:45] LABS: BASOPHILS % 0.3 % (0.0-2.0); EOSINOPHILS % 0.4 % (0.0-7.0); HEMATOCRIT 37.8 % (37.0-47.0); HEMOGLOBIN 12.9 g/dl (12.0-16.0); LYMPHOCYTES # 1.8 10^3/ul (0.8-2.9); LYMPHOCYTES % 19.1 % (15.0-51.0); MEAN CORPUSCULAR HEMOGLOBIN 27.9 pg (29.0-33.0); MEAN CORPUSCULAR HGB CONC 34.1 g/dl (32.0-37.0); MEAN CORPUSCULAR VOLUME 81.8 fl (82.0-101.0); MEAN PLATELET VOLUME 9.6 fl (7.4-10.4); MONOCYTE # 0.4 10^3/ul (0.3-0.9); MONOCYTES % 4.3 % (0.0-11.0); NEUTROPHILS % 75.7 % (39.0-77.0); PLATELET COUNT 282 10^3/UL (140-415); RED BLOOD COUNT 4.62 10^6/ul (4.20-5.40)
[2018-09-10 15:45] LABS: WHITE BLOOD COUNT 9.3 10^3/ul (4.8-10.8)
[2018-09-10 16:03] LABS: ANION GAP 9 (5-13); BLOOD UREA NITROGEN 17 mg/dl (7-20); CALCIUM 10.3 mg/dl (8.4-10.2); CARBON DIOXIDE 22 mmol/L (21-31); CHLORIDE 104 mmol/L (97-110); CREATININE 0.77 mg/dl (0.44-1.00); Estimated GFR > 60 mL/min (>60); GLUCOSE 370 mg/dl (70-220); POTASSIUM 4.4 mmol/L (3.5-5.1); SODIUM 135 mmol/L (135-144)
[2018-09-10 16:34] LABS: TROPONIN-I < 0.012 ng/ml (0.000-0.120)
[2018-09-10] MEDS: ACCU-CHEK XX (17:17)
[2018-09-10] MEDS: HYDROCODONE/APAP (10/325) TAB PO (17:19)
[2018-09-10] MEDS: INSULIN ASPART [NOVOLOG] 3 ML PEN SC (17:50)
== END 2018-09-10 18:05 | disposition home or self-care (01) ==
LOC: E/R 18:05
DX: M79.604 Pain in right leg (principal); I11.0 Hypertensive heart disease with heart failure; I50.9 Heart failure, unspecified; M25.512 Pain in left shoulder; M79.605 Pain in left leg; Z79.4 Long term (current) use of insulin
CPT/HCPCS: 71045; 80048; 82962; 84484; 85025; 93005; 96372; 99285-25